=== PATIENT | female | born 1960 | race African-American/Black ===

== ENCOUNTER 2017-09-24 07:52 | Inpatient (IN) | payer SELFPAY ==
[~2017-09-24] VITALS: Ht 157.5 cm; Wt 83.9 kg
[~2017-09-24 07:52] MED LIST: AMLO5TAB4 PO; CARI350T27 PO; CLON0.2T12 PO; ESOM40CA PO; FURO-151 PO; NAPR-681 PO; OMEP40CA34 PO; POTA20TA82 PO; RANI300T4; SUCR1ORA2 PO
[2017-09-24] MEDS ORDERED: MORPHINE SULFATE 4 MG/ML CPJ (NOT FOR IM USE) IV STA (08:45)
[2017-09-24] MEDS ORDERED: ASPIRIN 81MG TABLET PO ONE (08:45)
[2017-09-24 08:54] LABS: BASOPHILS % 0.7 % (0.0-2.0); EOSINOPHILS % 4.5 % (0.0-5.0); HEMATOCRIT. 44.8 % (36.0-48.0); HEMOGLOBIN. 14.6 g/dL (12.0-16.0); MEAN CORPUSCULAR VOLUME 89.1 fL (81.0-99.0); MEAN PLATELET VOLUME 8.4 fl (7.4-10.4); MONOCYTES % 6.4 % (2.0-8.0); NEUTROPHILS % 62.4 % (40.0-76.0); PLATELET 354 x1000/uL (130-400); RED BLOOD CELL COUNT 5.04 mill/uL (4.2-5.4); RED CELL DISTRIBUTION WIDTH 15.8 % (11.6-14.6)
[2017-09-24 09:08] LABS: CARBON DIOXIDE 27 mEq/L (21-32); CHLORIDE 109 mEq/L (98-107); TROPONIN I < 0.02 ng/mL (0.00-0.04)
[2017-09-24 09:11] LABS: PROTHROMBIN TIME 10.7 sec (9.4-11.6)
[2017-09-24] MEDS ORDERED: HYDRALAZINE HCL 50MG TABLET PO ONE (10:15)
[2017-09-24 10:55] VITALS: BP 178/73
[2017-09-24] MEDS ORDERED: NA PHOS,M-B/NA PHOS,DI-BA ENEMA 118ML PR PRN (11:30)
[2017-09-24] MEDS ORDERED: CLONIDINE 0.1MG TABLET PO PRN (11:30)
[2017-09-24] MEDS ORDERED: LORAZEPAM 0.5MG TABLET PO PRN (11:30)
[2017-09-24] MEDS ORDERED: ACETAMINOPHEN 325MG TABLET PO PRN (11:30)
[2017-09-24] MEDS ORDERED: GUAIFENESIN 200MG/10ML SUGAR FREE UDC PO PRN (11:30)
[2017-09-24] MEDS ORDERED: MAGNESIUM/ALUMINUM HYDROXIDE/SIMETHICONE 30ML UDC PO PRN (11:30)
[2017-09-24] MEDS ORDERED: DIPHENHYDRAMINE 50MG/ML VIAL IV PRN (11:30)
[2017-09-24] MEDS ORDERED: IPRATROPIUM/ALBUTEROL 0.5-3(2.5)MG/3ML NEB INH PRN (11:30)
[2017-09-24] MEDS ORDERED: TRAMADOL 50MG TABLET PO PRN (11:30)
[2017-09-24] MEDS ORDERED: AMLODIPINE 10MG TABLET PO SCH (11:30)
[2017-09-24] MEDS ORDERED: NITROGLYCERIN 0.4MG TABLET SL SL PRN (11:30)
[2017-09-24] MEDS ORDERED: DOCUSATE SODIUM 100MG CAPSULE PO PRN (11:30)
[2017-09-24] MEDS ORDERED: ENOXAPARIN 40MG/0.4ML SYR SUBCUT SCH (11:30)
[2017-09-24] MEDS: METOPROLOL TARTRATE 25MG TABLET PO SCH ×2 (12:00→21:00)
[2017-09-24] MEDS: PANTOPRAZOLE SODIUM 40 MG/VIAL IV SCH (12:12)
[2017-09-24] MEDS: ONDANSETRON HCL 4MG/2ML VIAL IV PRN ×3 (12:13→21:49)
[2017-09-24] MEDS: ENOXAPARIN 30MG/0.3ML SYR SUBCUT SCH ×2 (12:13→22:05)
[2017-09-24] MEDS: LISINOPRIL 20MG TABLET PO SCH ×2 (12:14→21:00)
[2017-09-24] MEDS ORDERED: INFLUENZA VIRUS VACCINE 0.5ML SYR IM ONE (14:45)
[2017-09-24] MEDS ORDERED: REGADENOSON 0.4 MG/5 ML IV NR (15:00)
[2017-09-24 16:00] VITALS: BP_SYST 150; BP_SYST 169; BP_DIAS 70
[2017-09-24] MEDS: NITROGLYCERIN OINT 1GM/INCH UDPKT TD SCH ×2 (16:45→22:00)
[2017-09-24 17:10] LABS: CREATINE KINASE 32 IU/L (26-192); CREATINE KINASE MB FRACTION 0.7 ng/mL (0.5-3.6); TROPONIN I < 0.02 ng/mL (0.00-0.04)
[2017-09-24 20:00] VITALS: BP 118/58
[2017-09-24] MEDS ORDERED: ATORVASTATIN CALCIUM 20MG TABLET PO SCH (21:00)
[2017-09-24] MEDS: AMLODIPINE 5MG TABLET PO SCH (21:00)
[2017-09-24] MEDS ORDERED: ZOLPIDEM TARTRATE 5MG TABLET PO PRN (21:00)
[2017-09-24 22:55] LABS: CREATINE KINASE 30 IU/L (26-192); CREATINE KINASE MB FRACTION 0.5 ng/mL (0.5-3.6); TROPONIN I < 0.02 ng/mL (0.00-0.04)
[2017-09-25] VITALS: BP 130/65
[2017-09-25 04:00] VITALS: BP 140/68
[2017-09-25 04:50] LABS: *AMPHETAMINES SCREEN URINE NEGATIVE (NEGATIVE); *BARBITURATES SCREEN URINE NEGATIVE (NEGATIVE); *BENZODIAZEPINES SCREEN URINE NEGATIVE (NEGATIVE); *COCAINE SCREEN URINE PRESUMTIVE POSITIVE (NEGATIVE); CANNABINOID URINE SCREEN NEGATIVE (NEGATIVE); METHADONE URINE SCREEN NEGATIVE (NEGATIVE); OPIATES URINE SCREEN PRESUMTIVE POSITIVE (NEGATIVE); PHENCYCLIDINE URINE SCREEN NEGATIVE (NEGATIVE)
[2017-09-25 07:15] LABS: BASOPHILS % 1.3 % (0.0-2.0); EOSINOPHILS % 5.7 % (0.0-5.0); HEMATOCRIT. 38.9 % (36.0-48.0); HEMOGLOBIN. 12.6 g/dL (12.0-16.0); LYMPHOCYTES % 30.8 % (20.0-50.0); MEAN CORPUSCULAR HEMOGLOBIN 28.6 pg (28.0-32.0); MEAN CORPUSCULAR VOLUME 88.5 fL (81.0-99.0); MEAN PLATELET VOLUME 8.4 fl (7.4-10.4); MONOCYTES % 7.7 % (2.0-8.0); NEUTROPHILS % 54.5 % (40.0-76.0); PLATELET 357 x1000/uL (130-400); RED BLOOD CELL COUNT 4.39 mill/uL (4.2-5.4); RED CELL DISTRIBUTION WIDTH 15.6 % (11.6-14.6)
[2017-09-25 07:42] LABS: CARBON DIOXIDE 28 mEq/L (21-32); CHLORIDE 108 mEq/L (98-107)
[2017-09-25 07:45] VITALS: BP 110/62
[2017-09-25 07:48] LABS: TROPONIN I < 0.02 ng/mL (0.00-0.04)
[2017-09-25] MEDS ORDERED: REGADENOSON 0.4 MG/5 ML IV ONE (08:30)
[2017-09-25] MEDS: PANTOPRAZOLE SODIUM 40 MG/VIAL IV SCH (08:55)
[2017-09-25] MEDS: ENOXAPARIN 30MG/0.3ML SYR SUBCUT SCH (08:55)
[2017-09-25] MEDS: ONDANSETRON HCL 4MG/2ML VIAL IV PRN (08:55)
[2017-09-25] MEDS: AMLODIPINE 5MG TABLET PO SCH (09:00)
[2017-09-25] MEDS: LISINOPRIL 20MG TABLET PO SCH (09:00)
[2017-09-25] MEDS ORDERED: ASPIRIN 325MG EC TABLET PO SCH (09:00)
[2017-09-25] MEDS: METOPROLOL TARTRATE 25MG TABLET PO SCH (09:00)
[2017-09-25 12:45] VITALS: BP 141/78
[2017-09-25 14:14] VITALS: BP 110/62
[2017-09-26] MEDS ORDERED: FAMOTIDINE 20MG TABLET PO SCH (09:00)
== END 2017-09-25 15:15 | disposition home or self-care (01) | DRG 194 ==
LOC: ER 07:57 → 7WST 09:22 → EDBEDREQ 09:54 → ENRESERV 10:09
PROVIDERS: ADMIT Internal Medicine; ATTEND Internal Medicine
DX: I11.0 Hypertensive heart disease with heart failure (principal); N19 Unspecified kidney failure; E44.1 Mild protein-calorie malnutrition; I50.9 Heart failure, unspecified; E78.00 Pure hypercholesterolemia, unspecified; E78.5 Hyperlipidemia, unspecified; E87.6 Hypokalemia; F17.210 Nicotine dependence, cigarettes, uncomplicated; F41.9 Anxiety disorder, unspecified; J44.9 Chronic obstructive pulmonary disease, unspecified; K21.9 Gastro-esophageal reflux disease without esophagitis; Z82.49 Family history of ischemic heart disease and other diseases of the circulatory system; Z90.49 Acquired absence of other specified parts of digestive tract; Z79.899 Other long term (current) drug therapy; Z68.33 Body mass index [BMI] 33.0-33.9, adult
CPT/HCPCS: 36415; 71010; 80048; 80053; 80061; 80305; 82550; 82553; 83036; 83880; 84484; 85025; 85610; 90686; 93005; 93017; 93306; 93970; 96374; 99285; A9500; C9113; J1650; J2270; J2405; J2785

== ENCOUNTER 2017-12-02 11:46 | Emergency (ER) | payer MEDICAID ==
[~2017-12-02] VITALS: Ht 160 cm; Wt 76.0 kg
[~2017-12-02 11:46] MED LIST changes: -CLON0.2T12 PO; -RANI300T4
[2017-12-02] MEDS ORDERED: SODIUM CHLORIDE 0.9% 1,000 ML IV ONE (15:14)
[2017-12-02] MEDS ORDERED: ONDANSETRON HCL 4MG/2ML VIAL IV ONE (15:15)
[2017-12-02] MEDS ORDERED: IBUPROFEN 600MG TABLET PO ONE (15:15)
[2017-12-02 15:49] LABS: BASOPHILS % 1.1 % (0.0-2.0); EOSINOPHILS % 5.5 % (0.0-5.0); LYMPHOCYTES % 28.1 % (20.0-50.0); MEAN CORPUSCULAR VOLUME 89.4 fL (81.0-99.0); MEAN PLATELET VOLUME 7.8 fl (7.4-10.4); MONOCYTES % 6.6 % (2.0-8.0); NEUTROPHILS % 58.7 % (40.0-76.0); PLATELET 425 x1000/uL (130-400); RED BLOOD CELL COUNT 4.47 mill/uL (4.2-5.4); RED CELL DISTRIBUTION WIDTH 15.9 % (11.6-14.6)
[2017-12-02 15:51] LABS: CHLORIDE 110 mEq/L (98-107)
[2017-12-02 16:06] VITALS: BP 169/74
== END 2017-12-02 16:35 | disposition home or self-care (01) ==
LOC: ER 13:00
DX: R53.1 Weakness (principal); R19.7 Diarrhea, unspecified; R11.0 Nausea; M17.11 Unilateral primary osteoarthritis, right knee; I11.0 Hypertensive heart disease with heart failure; I50.9 Heart failure, unspecified; Z90.49 Acquired absence of other specified parts of digestive tract
CPT/HCPCS: 36415; 73562; 80053; 83690; 85025; 93005; 99285; J7030

== ENCOUNTER 2018-07-15 03:59 | Inpatient (IN) | payer MEDICAID ==
[~2018-07-15] VITALS: Ht 157.5 cm; Wt 82.8 kg
[~2018-07-15 03:59] MED LIST changes: +CLOP75TA16 PO; -ESOM40CA PO; +GABA-533 PO
[2018-07-15] MEDS ORDERED: MORPHINE SULFATE 4 MG/ML CPJ (NOT FOR IM USE) IV STA (04:22)
[2018-07-15] MEDS ORDERED: NITROGLYCERIN 0.4MG TABLET SL SL PRN (04:30)
[2018-07-15 05:15] LABS: BASOPHILS % 1.2 % (0.0-2.0); CHLORIDE 112 mEq/L (98-107); HEMATOCRIT. 38.9 % (36.0-48.0); HEMOGLOBIN. 12.7 g/dL (12.0-16.0); LYMPHOCYTES % 34.7 % (20.0-50.0); MEAN CORPUSCULAR VOLUME 91.8 fL (81.0-99.0); MONOCYTES % 6.4 % (2.0-8.0); NEUTROPHILS % 53.7 % (40.0-76.0); PLATELET 391 x1000/uL (130-400); RED BLOOD CELL COUNT 4.23 mill/uL (4.2-5.4); RED CELL DISTRIBUTION WIDTH 15.2 % (11.6-14.6)
[2018-07-15] MEDS ORDERED: IOHEXOL-350 100 ML BOTTLE ONE (05:40)
[2018-07-15] MEDS ORDERED: ACETAMINOPHEN 650MG SUPP PR PRN (08:45)
[2018-07-15] MEDS ORDERED: HYDROCODONE/ACETAMINOPHEN 5/325MG TABLET PO PRN (08:45)
[2018-07-15] MEDS ORDERED: ACETAMINOPHEN 325MG TABLET PO PRN (08:45)
[2018-07-15] MEDS ORDERED: ONDANSETRON HCL 4MG/2ML INJ IV PRN (08:45)
[2018-07-15] MEDS ORDERED: ACETAMINOPHEN 650MG/20.3ML UDC GT PRN (08:45)
[2018-07-15 08:49] VITALS: BP 170/69
[2018-07-15] MEDS ORDERED: REGADENOSON 0.4 MG/5 ML IV ONE ×2 (09:15→10:28)
[2018-07-15 09:45] VITALS: BP 170/69
[2018-07-15] MEDS: OMEPRAZOLE 20MG CAPSULE EXTENDED RELEASE PO SCH (11:25)
[2018-07-15] MEDS: AMLODIPINE 5MG TABLET PO SCH (11:25)
[2018-07-15] MEDS: FUROSEMIDE 40MG TABLET PO SCH (11:25)
[2018-07-15] MEDS: SUCRALFATE 1G TABLET PO SCH ×3 (11:25→21:54)
[2018-07-15] MEDS: CLOPIDOGREL 75MG TABLET PO SCH (11:25)
[2018-07-15 12:03] LABS: CLARITY URINE CLEAR (CLEAR); COLOR URINE YELLOW (YELLOW); KETONES URINE NEGATIVE (NEGATIVE); LEUKOCYTE ESTERASE URINE NEGATIVE (NEGATIVE); NITRITE URINE NEGATIVE (NEGATIVE); OCCULT BLOOD URINE 1+ (NEGATIVE); PH URINE 6.5 (4.5-8.0); PROTEIN URINE NEGATIVE (NEGATIVE); SPECIFIC GRAVITY URINE 1.073 (1.005-1.030); UROBILINOGEN URINE 0.2 E.U./dL (0.2-1.0)
[2018-07-15 12:04] VITALS: BP 194/70
[2018-07-15 13:02] LABS: *BARBITURATES SCREEN URINE NEGATIVE (NEGATIVE); *BENZODIAZEPINES SCREEN URINE NEGATIVE (NEGATIVE); *COCAINE SCREEN URINE PRESUMTIVE POSITIVE (NEGATIVE); METHADONE URINE SCREEN NEGATIVE (NEGATIVE); OPIATES URINE SCREEN PRESUMTIVE POSITIVE (NEGATIVE)
[2018-07-15 13:03] LABS: *AMPHETAMINES SCREEN URINE NEGATIVE (NEGATIVE); CANNABINOID URINE SCREEN NEGATIVE (NEGATIVE); PHENCYCLIDINE URINE SCREEN NEGATIVE (NEGATIVE)
[2018-07-15] MEDS: IPRATROPIUM/ALBUTEROL 0.5-3(2.5)MG/3ML NEB INH SCH ×3 (15:06→22:38)
[2018-07-15 16:08] VITALS: BP 175/73
[2018-07-15 16:57] LABS: CREATINE KINASE 62 IU/L (26-192)
[2018-07-15 16:58] LABS: CREATINE KINASE MB FRACTION < 1.0 ng/mL (0.5-3.6)
[2018-07-15] MEDS ORDERED: IPRATROPIUM/ALBUTEROL 0.5-3(2.5)MG/3ML NEB HHN PRN (17:30)
[2018-07-15] MEDS: NICOTINE 7MG PATCH TD SCH (18:01)
[2018-07-15] MEDS: HYDROCODONE/ACETAMINOPHEN 10/325MG TABLET PO PRN (18:02)
[2018-07-15 20:00] VITALS: BP 162/76
[2018-07-15] MEDS: NITROGLYCERIN OINT 1GM/INCH UDPKT TD SCH (21:58)
[2018-07-15] MEDS: ONDANSETRON 4MG ODT PO PRN (23:58)
[2018-07-16 00:15] VITALS: BP 144/67
[2018-07-16 00:25] LABS: CREATINE KINASE 45 IU/L (26-192)
[2018-07-16 00:26] LABS: CREATINE KINASE MB FRACTION < 1.0 ng/mL (0.5-3.6)
[2018-07-16 04:00] VITALS: BP 169/62
[2018-07-16 06:12] LABS: BASOPHILS % 1.3 % (0.0-2.0); CHLORIDE 107 mEq/L (98-107); EOSINOPHILS % 7.1 % (0.0-5.0); HEMATOCRIT. 35.6 % (36.0-48.0); LYMPHOCYTES % 30.7 % (20.0-50.0); MEAN CORPUSCULAR HEMOGLOBIN 30.7 pg (28.0-32.0); MEAN PLATELET VOLUME 8.2 fl (7.4-10.4); MONOCYTES % 10.1 % (2.0-8.0); NEUTROPHILS % 50.8 % (40.0-76.0); PLATELET 359 x1000/uL (130-400); RED BLOOD CELL COUNT 3.91 mill/uL (4.2-5.4); RED CELL DISTRIBUTION WIDTH 15.5 % (11.6-14.6)
[2018-07-16 06:24] LABS: LDL CHOLESTEROL 96 mg/dL (5-100)
[2018-07-16 06:25] LABS: PHOSPHORUS 3.8 mg/dL (2.5-4.9)
[2018-07-16 06:26] LABS: T4 FREE 0.81 ng/dL (0.76-1.46)
[2018-07-16 06:27] LABS: HDL CHOLESTEROL 73 mg/dL (40-59)
[2018-07-16] MEDS: IPRATROPIUM/ALBUTEROL 0.5-3(2.5)MG/3ML NEB INH SCH ×3 (07:23→20:58)
[2018-07-16] MEDS: HYDROCODONE/ACETAMINOPHEN 10/325MG TABLET PO PRN (07:52)
[2018-07-16 08:03] VITALS: BP 159/71
[2018-07-16] MEDS: NITROGLYCERIN OINT 1GM/INCH UDPKT TD SCH ×3 (09:10→21:35)
[2018-07-16] MEDS: CLOPIDOGREL 75MG TABLET PO SCH (09:13)
[2018-07-16] MEDS: AMLODIPINE 5MG TABLET PO SCH (09:13)
[2018-07-16] MEDS: OMEPRAZOLE 20MG CAPSULE EXTENDED RELEASE PO SCH (09:13)
[2018-07-16] MEDS: ASPIRIN 81MG TABLET PO SCH (09:14)
[2018-07-16] MEDS: FUROSEMIDE 40MG TABLET PO SCH (09:14)
[2018-07-16] MEDS: SUCRALFATE 1G TABLET PO SCH ×4 (09:14→21:34)
[2018-07-16] MEDS: NICOTINE 7MG PATCH TD SCH (09:24)
[2018-07-16 12:07] VITALS: BP 160/83
[2018-07-16] MEDS ORDERED: MORPHINE SULFATE 4 MG/ML CPJ (NOT FOR IM USE) IV PRN (12:30)
[2018-07-16] MEDS: MORPHINE SULFATE 4 MG/ML CPJ (NOT FOR IM USE) IV PRN (12:40)
[2018-07-16 16:55] VITALS: BP 145/66
[2018-07-16 20:00] VITALS: BP 149/69
[2018-07-17] VITALS: BP 149/73
[2018-07-17] MEDS: IPRATROPIUM/ALBUTEROL 0.5-3(2.5)MG/3ML NEB INH SCH ×3 (01:13→15:05)
[2018-07-17 04:00] VITALS: BP 175/79
[2018-07-17] MEDS: NITROGLYCERIN OINT 1GM/INCH UDPKT TD SCH (06:00)
[2018-07-17] MEDS: OMEPRAZOLE 20MG CAPSULE EXTENDED RELEASE PO SCH (06:30)
[2018-07-17] MEDS: SUCRALFATE 1G TABLET PO SCH ×2 (06:30→12:46)
[2018-07-17 08:00] VITALS: BP 136/70
[2018-07-17 08:32] VITALS: BP 136/70
[2018-07-17] MEDS: CLOPIDOGREL 75MG TABLET PO SCH (09:37)
[2018-07-17] MEDS: ASPIRIN 81MG TABLET PO SCH (09:37)
[2018-07-17] MEDS: FUROSEMIDE 40MG TABLET PO SCH (09:37)
[2018-07-17] MEDS: AMLODIPINE 5MG TABLET PO SCH (09:38)
[2018-07-17] MEDS: NICOTINE 7MG PATCH TD SCH (09:38)
[2018-07-17] MEDS: MORPHINE SULFATE 4 MG/ML CPJ (NOT FOR IM USE) IV PRN (09:45)
[2018-07-17] MEDS: ONDANSETRON 4MG ODT PO PRN (09:51)
[2018-07-17 10:28] LABS: BASOPHILS % 0.7 % (0.0-2.0); EOSINOPHILS % 4.4 % (0.0-5.0); HEMATOCRIT. 40.4 % (36.0-48.0); HEMOGLOBIN. 13.1 g/dL (12.0-16.0); LYMPHOCYTES % 20.9 % (20.0-50.0); MEAN CORPUSCULAR HEMOGLOBIN 29.8 pg (28.0-32.0); MEAN CORPUSCULAR VOLUME 92.1 fL (81.0-99.0); MONOCYTES % 7.2 % (2.0-8.0); NEUTROPHILS % 66.8 % (40.0-76.0); PLATELET 394 x1000/uL (130-400); RED BLOOD CELL COUNT 4.39 mill/uL (4.2-5.4); RED CELL DISTRIBUTION WIDTH 15.4 % (11.6-14.6)
[2018-07-17 11:16] LABS: CHLORIDE 106 mEq/L (98-107)
[2018-07-17 12:59] VITALS: BP 167/82
[2018-07-17 16:00] VITALS: BP 135/62
== END 2018-07-17 16:43 | disposition home or self-care (01) | DRG 203 ==
LOC: ER 03:59 → 6WST 05:44 → EDBEDREQ 05:47 → EDBEDREQTM 05:47 → ENRESERV 06:24
PROVIDERS: ADMIT Internal Medicine; ATTEND Internal Medicine
DX: M94.0 Chondrocostal junction syndrome [Tietze] (principal); E44.1 Mild protein-calorie malnutrition; I11.0 Hypertensive heart disease with heart failure; I50.9 Heart failure, unspecified; K76.89 Other specified diseases of liver; E78.00 Pure hypercholesterolemia, unspecified; E78.5 Hyperlipidemia, unspecified; F14.10 Cocaine abuse, uncomplicated; F17.210 Nicotine dependence, cigarettes, uncomplicated; J44.9 Chronic obstructive pulmonary disease, unspecified; Z82.49 Family history of ischemic heart disease and other diseases of the circulatory system; Z90.49 Acquired absence of other specified parts of digestive tract; Z68.33 Body mass index [BMI] 33.0-33.9, adult
CPT/HCPCS: 36415; 71045; 71275; 74174; 76700; 78452; 80048; 80053; 80061; 80305; 81003; 82550; 82553; 83036; 83690; 83735; 83880; 84100; 84439; 84443; 84481; 84484; 85025; 85379; 85610; 85730; 93005; 93306; 93970; 94640; 96374; 99285; A9500; J2270; J2785; J7620; Q0162; Q9967

== ENCOUNTER 2019-02-23 15:01 | Inpatient (IN) | payer MEDICAID ==
[~2019-02-23] VITALS: Ht 162.6 cm; Wt 76.4 kg
[~2019-02-23 15:01] MED LIST changes: -NAPR-681 PO
[2019-02-23] MEDS ORDERED: MORPHINE SULFATE 4 MG/ML CPJ (NOT FOR IM USE) IV ONE (15:30)
[2019-02-23 15:59] LABS: BASOPHILS % 0.6 % (0.0-2.0); EOSINOPHILS % 4.3 % (0.0-5.0); HEMATOCRIT. 40.3 % (36.0-48.0); HEMOGLOBIN. 13.1 g/dL (12.0-16.0); LYMPHOCYTES % 18.4 % (20.0-50.0); MEAN CORPUSCULAR HEMOGLOBIN 28.7 pg (28.0-32.0); MEAN CORPUSCULAR VOLUME 88.6 fL (81.0-99.0); MEAN PLATELET VOLUME 8.4 fl (7.4-10.4); MONOCYTES % 8.7 % (2.0-8.0); PLATELET 360 x1000/uL (130-400); RED BLOOD CELL COUNT 4.55 mill/uL (4.2-5.4); RED CELL DISTRIBUTION WIDTH 15.9 % (11.6-14.6)
[2019-02-23 16:03] LABS: CHLORIDE 112 mEq/L (98-107)
[2019-02-23] MEDS ORDERED: ASPIRIN 81MG TABLET PO ONE (16:45)
[2019-02-23] MEDS ORDERED: AMLODIPINE 10MG TABLET PO ONE (17:00)
[2019-02-23] MEDS ORDERED: MAGNESIUM/ALUMINUM HYDROXIDE/SIMETHICONE 30ML UDC PO PRN (17:45)
[2019-02-23] MEDS ORDERED: MORPHINE SULFATE 2 MG/ML CPJ (NOT FOR IM USE) IV PRN (17:45)
[2019-02-23] MEDS ORDERED: ACETAMINOPHEN 325MG TABLET PO PRN (17:45)
[2019-02-23] MEDS ORDERED: DIPHENHYDRAMINE 50MG/ML VIAL IV PRN (17:45)
[2019-02-23] MEDS ORDERED: GUAIFENESIN 200MG/10ML SUGAR FREE UDC PO PRN (17:45)
[2019-02-23 17:57] LABS: PHOSPHORUS 3.1 mg/dL (2.5-4.9)
[2019-02-23] MEDS ORDERED: DOCUSATE SODIUM 100MG CAPSULE PO PRN (19:00)
[2019-02-23 23:26] LABS: CREATINE KINASE MB FRACTION 1.1 ng/mL (0.5-3.6)
[2019-02-23] MEDS ORDERED: SENNOSIDES 8.6MG TABLET PO PRN (23:30)
[2019-02-24] VITALS (7 sets, daily range): BP systolic 148–178; BP diastolic 55–76
[2019-02-24] MEDS: MORPHINE SULFATE 2 MG/ML CPJ (NOT FOR IM USE) IV PRN ×5 (01:12→21:25)
[2019-02-24] MEDS: ONDANSETRON HCL 4MG/2ML INJ IV PRN ×2 (01:12→15:31)
[2019-02-24] MEDS: OMEPRAZOLE 20MG CAPSULE EXTENDED RELEASE PO SCH (05:52)
[2019-02-24 07:06] LABS: BASOPHILS % 0.9 % (0.0-2.0); EOSINOPHILS % 5.6 % (0.0-5.0); HEMATOCRIT. 36.9 % (36.0-48.0); HEMOGLOBIN. 11.8 g/dL (12.0-16.0); LYMPHOCYTES % 31.1 % (20.0-50.0); MEAN CORPUSCULAR HEMOGLOBIN 28.4 pg (28.0-32.0); MEAN CORPUSCULAR VOLUME 88.9 fL (81.0-99.0); MEAN PLATELET VOLUME 8.5 fl (7.4-10.4); MONOCYTES % 12.5 % (2.0-8.0); NEUTROPHILS % 49.9 % (40.0-76.0); PLATELET 314 x1000/uL (130-400); RED BLOOD CELL COUNT 4.15 mill/uL (4.2-5.4); RED CELL DISTRIBUTION WIDTH 16.1 % (11.6-14.6)
[2019-02-24 07:31] LABS: CHLORIDE 112 mEq/L (98-107)
[2019-02-24 07:50] LABS: LDL CHOLESTEROL 88 mg/dL (5-100)
[2019-02-24 07:52] LABS: CREATINE KINASE 88 IU/L (26-192); HDL CHOLESTEROL 87 mg/dL (40-59)
[2019-02-24 07:54] LABS: CREATINE KINASE MB FRACTION < 1.0 ng/mL (0.5-3.6)
[2019-02-24] MEDS: GABAPENTIN 400MG CAPSULE PO SCH ×2 (10:41→16:46)
[2019-02-24] MEDS: ENOXAPARIN 40MG/0.4ML SYR SUBCUT SCH (10:41)
[2019-02-24] MEDS: CLONIDINE 0.1MG TABLET PO PRN (12:21)
[2019-02-24] MEDS ORDERED: CLONIDINE 0.2MG TABLET PO PRN (12:45)
[2019-02-24] MEDS: ASPIRIN 81MG EC TABLET PO SCH (13:56)
[2019-02-24 15:58] LABS: *AMPHETAMINES SCREEN URINE NEGATIVE (NEGATIVE); *BARBITURATES SCREEN URINE NEGATIVE (NEGATIVE); *BENZODIAZEPINES SCREEN URINE NEGATIVE (NEGATIVE); *COCAINE SCREEN URINE PRESUMTIVE POSITIVE (NEGATIVE)
[2019-02-24 15:59] LABS: CANNABINOID URINE SCREEN NEGATIVE (NEGATIVE); METHADONE URINE SCREEN NEGATIVE (NEGATIVE); OPIATES URINE SCREEN PRESUMTIVE POSITIVE (NEGATIVE); PHENCYCLIDINE URINE SCREEN NEGATIVE (NEGATIVE)
[2019-02-24] MEDS: IPRATROPIUM/ALBUTEROL 0.5-3(2.5)MG/3ML NEB INH PRN (20:30)
[2019-02-24] MEDS: ATORVASTATIN CALCIUM 20MG TABLET PO SCH (21:19)
[2019-02-24] MEDS: AMLODIPINE 5MG TABLET PO SCH (21:19)
[2019-02-25] VITALS: BP 153/53
[2019-02-25 04:00] VITALS: BP 151/72
[2019-02-25] MEDS: MORPHINE SULFATE 2 MG/ML CPJ (NOT FOR IM USE) IV PRN ×4 (04:31→19:53)
[2019-02-25 07:25] LABS: BASOPHILS % 1.1 % (0.0-2.0); EOSINOPHILS % 6.2 % (0.0-5.0); HEMATOCRIT. 38.6 % (36.0-48.0); HEMOGLOBIN. 12.5 g/dL (12.0-16.0); LYMPHOCYTES % 29.5 % (20.0-50.0); MEAN CORPUSCULAR VOLUME 89.6 fL (81.0-99.0); MEAN PLATELET VOLUME 8.5 fl (7.4-10.4); MONOCYTES % 10.9 % (2.0-8.0); NEUTROPHILS % 52.3 % (40.0-76.0); PLATELET 344 x1000/uL (130-400); RED BLOOD CELL COUNT 4.31 mill/uL (4.2-5.4); RED CELL DISTRIBUTION WIDTH 15.9 % (11.6-14.6)
[2019-02-25] MEDS: OMEPRAZOLE 20MG CAPSULE EXTENDED RELEASE PO SCH (07:33)
[2019-02-25 08:00] VITALS: BP 169/74
[2019-02-25] MEDS: ASPIRIN 81MG EC TABLET PO SCH (08:39)
[2019-02-25] MEDS: AMLODIPINE 5MG TABLET PO SCH ×2 (08:39→20:48)
[2019-02-25] MEDS: GABAPENTIN 400MG CAPSULE PO SCH ×2 (08:39→17:50)
[2019-02-25] MEDS: ENOXAPARIN 40MG/0.4ML SYR SUBCUT SCH (08:39)
[2019-02-25 09:24] LABS: CHLORIDE 110 mEq/L (98-107)
[2019-02-25 09:39] LABS: LDL CHOLESTEROL 103 mg/dL (5-100)
[2019-02-25 09:40] LABS: CREATINE KINASE 44 IU/L (26-192)
[2019-02-25 09:42] LABS: HDL CHOLESTEROL 69 mg/dL (40-59)
[2019-02-25 09:44] LABS: CREATINE KINASE MB FRACTION < 1.0 ng/mL (0.5-3.6)
[2019-02-25 12:00] VITALS: BP 101/77
[2019-02-25] MEDS: CLONIDINE 0.1MG TABLET PO PRN (12:56)
[2019-02-25 16:00] VITALS: BP 155/73
[2019-02-25] MEDS: IPRATROPIUM/ALBUTEROL 0.5-3(2.5)MG/3ML NEB INH PRN (17:32)
[2019-02-25 20:00] VITALS: BP 128/80
[2019-02-25] MEDS: ATORVASTATIN CALCIUM 20MG TABLET PO SCH (20:47)
[2019-02-26] VITALS: BP 149/65
[2019-02-26 04:00] VITALS: BP 146/60
[2019-02-26] MEDS: MORPHINE SULFATE 2 MG/ML CPJ (NOT FOR IM USE) IV PRN ×2 (04:33→08:36)
[2019-02-26 08:00] VITALS: BP 141/61
[2019-02-26] MEDS: GABAPENTIN 400MG CAPSULE PO SCH (08:26)
[2019-02-26] MEDS: AMLODIPINE 5MG TABLET PO SCH (08:26)
[2019-02-26] MEDS: ASPIRIN 81MG EC TABLET PO SCH (08:26)
[2019-02-26] MEDS: ENOXAPARIN 40MG/0.4ML SYR SUBCUT SCH (08:27)
[2019-02-26] MEDS: OMEPRAZOLE 20MG CAPSULE EXTENDED RELEASE PO SCH (08:35)
[2019-02-26 10:56] VITALS: BP 141/68
== END 2019-02-26 13:18 | disposition home or self-care (01) | DRG 198 ==
LOC: ER 15:01 → 7WST 16:59 → ENRESERV 23:13
PROVIDERS: ADMIT Internal Medicine; ATTEND Internal Medicine
DX: I24.9 Acute ischemic heart disease, unspecified (principal); I11.0 Hypertensive heart disease with heart failure; E46 Unspecified protein-calorie malnutrition; I50.9 Heart failure, unspecified; G62.9 Polyneuropathy, unspecified; M19.90 Unspecified osteoarthritis, unspecified site; E78.00 Pure hypercholesterolemia, unspecified; J44.9 Chronic obstructive pulmonary disease, unspecified; K21.9 Gastro-esophageal reflux disease without esophagitis; R00.1 Bradycardia, unspecified; E78.5 Hyperlipidemia, unspecified; F14.10 Cocaine abuse, uncomplicated; Z71.51 Drug abuse counseling and surveillance of drug abuser; Z90.49 Acquired absence of other specified parts of digestive tract; Z82.49 Family history of ischemic heart disease and other diseases of the circulatory system; Z83.3 Family history of diabetes mellitus; Z79.899 Other long term (current) drug therapy; Z87.891 Personal history of nicotine dependence; Z68.28 Body mass index [BMI] 28.0-28.9, adult
CPT/HCPCS: 36415; 71045; 80048; 80061; 80305; 82550; 82553; 83735; 83880; 84100; 84443; 84484; 85379; 93005; 93306; 93970; 94640; 97116; 97162; 97166; 99285; J1200; J1650; J2270; J2405; J7620

== ENCOUNTER 2019-05-09 16:33 | Emergency (ER) | payer MEDICAID ==
[~2019-05-09] VITALS: Ht 167.6 cm; Wt 85.0 kg
[~2019-05-09 16:33] MED LIST changes: -CLOP75TA16 PO; +CLOP75TA4 PO
[2019-05-09] MEDS ORDERED: SODIUM CHLORIDE 0.9% 1,000 ML IV ONE (18:27)
[2019-05-09] MEDS ORDERED: KETOROLAC 30MG/ML VIAL IV STA (18:27)
[2019-05-09] MEDS ORDERED: ONDANSETRON HCL 4MG/2ML INJ IV STA (18:27)
[2019-05-09 18:53] LABS: BASOPHILS % 0.8 % (0.0-2.0); EOSINOPHILS % 4.7 % (0.0-5.0); HEMATOCRIT. 39.7 % (36.0-48.0); HEMOGLOBIN. 12.9 g/dL (12.0-16.0); LYMPHOCYTES % 25.4 % (20.0-50.0); MEAN CORPUSCULAR HEMOGLOBIN 29.5 pg (28.0-32.0); MEAN PLATELET VOLUME 7.7 fl (7.4-10.4); NEUTROPHILS % 60.1 % (40.0-76.0); PLATELET 341 x1000/uL (130-400); RED BLOOD CELL COUNT 4.36 mill/uL (4.2-5.4); RED CELL DISTRIBUTION WIDTH 15.8 % (11.6-14.6)
[2019-05-09 18:56] LABS: CHLORIDE 118 mEq/L (98-107)
[2019-05-09 18:57] LABS: PROTHROMBIN TIME 10.3 sec (9.6-11.0)
[2019-05-09] MEDS ORDERED: SODIUM CHLORIDE 0.45% 500 ML IV ONE (19:15)
[2019-05-09 20:08] LABS: CLARITY URINE CLEAR (CLEAR); COLOR URINE YELLOW (YELLOW); KETONES URINE NEGATIVE (NEGATIVE); LEUKOCYTE ESTERASE URINE NEGATIVE (NEGATIVE); NITRITE URINE NEGATIVE (NEGATIVE); OCCULT BLOOD URINE 1+ (NEGATIVE); PROTEIN URINE NEGATIVE (NEGATIVE); SPECIFIC GRAVITY URINE 1.014 (1.005-1.030); UROBILINOGEN URINE 0.2 E.U./dL (0.2-1.0)
[2019-05-09 20:31] LABS: *AMPHETAMINES SCREEN URINE NEGATIVE (NEGATIVE); *BARBITURATES SCREEN URINE NEGATIVE (NEGATIVE); *BENZODIAZEPINES SCREEN URINE NEGATIVE (NEGATIVE); *COCAINE SCREEN URINE PRESUMTIVE POSITIVE (NEGATIVE); METHADONE URINE SCREEN NEGATIVE (NEGATIVE); OPIATES URINE SCREEN NEGATIVE (NEGATIVE)
[2019-05-09 20:32] LABS: CANNABINOID URINE SCREEN NEGATIVE (NEGATIVE); PHENCYCLIDINE URINE SCREEN NEGATIVE (NEGATIVE)
[2019-05-09 21:33] VITALS: BP 185/68
== END 2019-05-09 21:35 | disposition home or self-care (01) ==
LOC: ER 16:33
DX: R07.89 Other chest pain (principal); R10.9 Unspecified abdominal pain; E78.00 Pure hypercholesterolemia, unspecified; J44.9 Chronic obstructive pulmonary disease, unspecified; I11.0 Hypertensive heart disease with heart failure; I50.9 Heart failure, unspecified; F14.10 Cocaine abuse, uncomplicated; Z90.49 Acquired absence of other specified parts of digestive tract
CPT/HCPCS: 36415; 80053; 80305; 81003; 83690; 85025; 85610; 93005; 96361; 96374; 96375; 99284; J1885; J2405; J7030

== ENCOUNTER 2019-11-17 21:25 | Emergency (ER) | payer MEDICAID ==
[~2019-11-17] VITALS: Ht 162.6 cm; Wt 74.0 kg
[~2019-11-17 21:25] MED LIST changes: +OMEP40CA12 PO; -OMEP40CA34 PO
[2019-11-18 01:50] LABS: BASOPHILS % 0.6 % (0.0-2.0); EOSINOPHILS % 2.3 % (0.0-5.0); HEMATOCRIT. 38.6 % (36.0-48.0); HEMOGLOBIN. 12.7 g/dL (12.0-16.0); LYMPHOCYTES % 20.1 % (20.0-50.0); MEAN CORPUSCULAR HEMOGLOBIN 30.1 pg (28.0-32.0); MEAN CORPUSCULAR VOLUME 91.6 fL (81.0-99.0); MEAN PLATELET VOLUME 8.3 fl (7.4-10.4); MONOCYTES % 9.4 % (2.0-8.0); NEUTROPHILS % 67.6 % (40.0-76.0); PLATELET 336 x1000/uL (130-400); RED BLOOD CELL COUNT 4.22 mill/uL (4.2-5.4); RED CELL DISTRIBUTION WIDTH 14.9 % (11.6-14.6)
[2019-11-18 01:58] LABS: ETHANOL BLOOD < 10 mg/dL
[2019-11-18 02:09] LABS: CHLORIDE 110 mEq/L (98-107)
[2019-11-18] MEDS ORDERED: CLONIDINE 0.2MG TABLET PO ONE (04:45)
[2019-11-18 13:37] VITALS: BP 142/70
== END 2019-11-18 13:40 | disposition home or self-care (01) ==
LOC: ER 21:25
DX: S00.83XA Contusion of other part of head, initial encounter (principal); Y08.89XA Assault by other specified means, initial encounter; Y93.89 Activity, other specified; Y92.89 Other specified places as the place of occurrence of the external cause; Y99.8 Other external cause status; R07.89 Other chest pain; F14.10 Cocaine abuse, uncomplicated; I11.0 Hypertensive heart disease with heart failure; I50.9 Heart failure, unspecified; E78.00 Pure hypercholesterolemia, unspecified; J44.9 Chronic obstructive pulmonary disease, unspecified; Z79.899 Other long term (current) drug therapy
CPT/HCPCS: 36415; 70450; 70486; 71045; 80053; 80320; 83880; 84484; 85025; 93005; 99284; Z7610; G0480

== ENCOUNTER 2020-03-06 00:22 | Emergency (ER) | payer MEDICAID ==
[~2020-03-06] VITALS: Ht 165.1 cm; Wt 81.0 kg
[2020-03-06] MEDS ORDERED: IBUPROFEN 600MG TABLET PO ONE (00:45)
[2020-03-06] MEDS ORDERED: ACETAMINOPHEN 325MG TABLET PO ONE (00:45)
[2020-03-06 03:00] VITALS: BP 139/68
== END 2020-03-06 03:46 | disposition home or self-care (01) ==
LOC: ER 00:22
DX: S20.219A Contusion of unspecified front wall of thorax, initial encounter (principal); S42.292A Other displaced fracture of upper end of left humerus, initial encounter for closed fracture; I10 Essential (primary) hypertension; F14.10 Cocaine abuse, uncomplicated; Z79.899 Other long term (current) drug therapy; Z90.49 Acquired absence of other specified parts of digestive tract; Y04.0XXA Assault by unarmed brawl or fight, initial encounter; Y92.89 Other specified places as the place of occurrence of the external cause; Y93.89 Activity, other specified; Y99.8 Other external cause status
CPT/HCPCS: 71045; 73030; 99284

== ENCOUNTER 2020-08-16 12:38 | Emergency (ER) | payer MEDICAID ==
[~2020-08-16] VITALS: Ht 170.2 cm; Wt 82.0 kg
[~2020-08-16 12:38] MED LIST changes: +AMLO10TA4 PO; -AMLO5TAB4 PO; -CARI350T27 PO; -FURO-151 PO; -POTA20TA82 PO; +SUCR1ORA15 PO
[2020-08-16] MEDS ORDERED: METOCLOPRAMIDE HCL 10MG/2ML VIAL IV STA (13:41)
[2020-08-16 13:45] VITALS: BP 141/71
[2020-08-16] MEDS ORDERED: SODIUM CHLORIDE 0.9% 1,000 ML IV ONE (13:45)
== END 2020-08-16 13:55 | disposition left against medical advice (07) ==
LOC: ER 12:38
DX: R53.1 Weakness (principal); R46.1 Bizarre personal appearance; I11.9 Hypertensive heart disease without heart failure; I25.2 Old myocardial infarction; Z95.0 Presence of cardiac pacemaker; Z98.890 Other specified postprocedural states
CPT/HCPCS: 93005; 99283; J7030

== ENCOUNTER 2020-09-12 21:16 | Inpatient (IN) | payer MEDICAID ==
[~2020-09-12] VITALS: Ht 157.5 cm; Wt 73.1 kg
[2020-09-12] MEDS ORDERED: MORPHINE SULFATE 4 MG/ML CPJ (NOT FOR IM USE) IV STA (23:39)
[2020-09-12] MEDS ORDERED: ONDANSETRON HCL 4MG/2ML INJ IV STA (23:39)
[2020-09-12 23:45] LABS: BASOPHILS % 0.6 % (0.0-2.0); EOSINOPHILS % 0.6 % (0.0-5.0); HEMATOCRIT. 32.1 % (36.0-48.0); HEMOGLOBIN. 10.5 g/dL (12.0-16.0); MEAN CORPUSCULAR HEMOGLOBIN 27.4 pg (28.0-32.0); MEAN CORPUSCULAR VOLUME 83.6 fL (81.0-99.0); MEAN PLATELET VOLUME 7.3 fl (7.4-10.4); MONOCYTES % 6.9 % (2.0-8.0); NEUTROPHILS % 78.9 % (40.0-76.0); PLATELET 575 x1000/uL (130-400); RED BLOOD CELL COUNT 3.84 mill/uL (4.2-5.4); RED CELL DISTRIBUTION WIDTH 17.8 % (11.6-14.6)
[2020-09-12] MEDS ORDERED: NITROGLYCERIN OINT 1GM/INCH UDPKT TD ONE (23:45)
[2020-09-12 23:54] LABS: CHLORIDE 109 mEq/L (98-107)
[2020-09-13] VITALS (7 sets, daily range): BP systolic 129–170; BP diastolic 68–85
[2020-09-13] MEDS ORDERED: IOHEXOL-350 100 ML BOTTLE ONE (02:44)
[2020-09-13] MEDS ORDERED: SODIUM CHLORIDE 0.9% 1,000 ML IV ONE (03:15)
[2020-09-13] MEDS ORDERED: IOHEXOL-300 100 ML BOTTLE ONE (03:54)
[2020-09-13] MEDS ORDERED: MORPHINE SULFATE 2 MG/ML CPJ (NOT FOR IM USE) IV PRN (05:15)
[2020-09-13] MEDS ORDERED: ACETAMINOPHEN 325MG TABLET PO PRN (09:30)
[2020-09-13] MEDS ORDERED: ONDANSETRON HCL 4MG/2ML INJ IV PRN (09:30)
[2020-09-13] MEDS: TRAMADOL 50MG TABLET PO PRN (12:56)
[2020-09-13] MEDS: SUCRALFATE 1G TABLET PO SCH ×3 (13:25→21:35)
[2020-09-13] MEDS: LOSARTAN POTASSIUM 50 MG TABLET PO SCH (13:26)
[2020-09-13] MEDS: AMLODIPINE 10MG TABLET PO SCH (13:26)
[2020-09-13] MEDS ORDERED: AMLODIPINE 10MG TABLET PO ONE (13:45)
[2020-09-13] MEDS: CLONIDINE 0.1MG TABLET PO PRN (16:52)
[2020-09-13] MEDS ORDERED: RIVA20TA PO (17:24)
[2020-09-13] MEDS ORDERED: ATOR-2 PO (17:24)
[2020-09-13] MEDS ORDERED: CARI250T PO (17:24)
[2020-09-13] MEDS ORDERED: HYDR-3280 MT (17:24)
[2020-09-13] MEDS: PANTOPRAZOLE SODIUM 40 MG/VIAL IV SCH (21:36)
[2020-09-14] VITALS (11 sets, daily range): BP systolic 107–150; BP diastolic 50–84
[2020-09-14] MEDS: SUCRALFATE 1G TABLET PO SCH ×4 (06:37→21:33)
[2020-09-14] MEDS ORDERED: OMEPRAZOLE 20MG CAPSULE EXTENDED RELEASE PO SCH (06:50)
[2020-09-14 06:57] LABS: BASOPHILS % 0.8 % (0.0-2.0); EOSINOPHILS % 1.5 % (0.0-5.0); HEMATOCRIT. 28.2 % (36.0-48.0); HEMOGLOBIN. 9.1 g/dL (12.0-16.0); LYMPHOCYTES % 23.4 % (20.0-50.0); MEAN CORPUSCULAR HEMOGLOBIN 27.2 pg (28.0-32.0); MEAN CORPUSCULAR VOLUME 84.2 fL (81.0-99.0); MEAN PLATELET VOLUME 7.4 fl (7.4-10.4); MONOCYTES % 9.9 % (2.0-8.0); NEUTROPHILS % 64.4 % (40.0-76.0); PLATELET 465 x1000/uL (130-400); RED BLOOD CELL COUNT 3.34 mill/uL (4.2-5.4); RED CELL DISTRIBUTION WIDTH 18.1 % (11.6-14.6)
[2020-09-14 06:59] LABS: CHLORIDE 109 mEq/L (98-107)
[2020-09-14 07:00] LABS: PARTIAL THROMBOPLASTIN TIME 28.5 sec (23.4-31.0)
[2020-09-14] MEDS ORDERED: AMLODIPINE 10MG TABLET PO SCH (09:00)
[2020-09-14] MEDS: AMLODIPINE 10MG TABLET PO SCH (09:00)
[2020-09-14] MEDS: LOSARTAN POTASSIUM 50 MG TABLET PO SCH (09:00)
[2020-09-14] MEDS: PANTOPRAZOLE SODIUM 40 MG/VIAL IV SCH ×2 (09:57→21:33)
[2020-09-14] MEDS ORDERED: DIPHENHYDRAMINE 50MG/ML VIAL ONE (11:52)
[2020-09-14] MEDS ORDERED: FENTANYL CITRATE/PF 50MCG/ML 2ML VIAL ONE (13:13)
[2020-09-14] MEDS ORDERED: MIDAZOLAM HCL 2 MG/2 ML VIAL ONE (13:13)
[2020-09-14] MEDS ORDERED: HYDRALAZINE 20MG/ML VIAL ONE (13:20)
[2020-09-14] MEDS ORDERED: SODIUM CHLORIDE 0.9% 10ML VIAL ONE (13:20)
[2020-09-14] MEDS: TRAMADOL 50MG TABLET PO PRN (16:30)
[2020-09-15] VITALS: BP 118/51
[2020-09-15 04:00] VITALS: BP 120/60
[2020-09-15] MEDS: SUCRALFATE 1G TABLET PO SCH ×4 (06:33→21:21)
[2020-09-15] MEDS: TRAMADOL 50MG TABLET PO PRN ×2 (06:38→13:35)
[2020-09-15 08:00] VITALS: BP_SYST 110; BP_SYST 136; BP_DIAS 60; BP_DIAS 71
[2020-09-15] MEDS: LOSARTAN POTASSIUM 50 MG TABLET PO SCH (09:05)
[2020-09-15] MEDS: PANTOPRAZOLE SODIUM 40 MG/VIAL IV SCH (09:06)
[2020-09-15] MEDS: AMLODIPINE 10MG TABLET PO SCH (09:06)
[2020-09-15 09:53] LABS: BASOPHILS % 0.7 % (0.0-2.0); HEMATOCRIT. 27.8 % (36.0-48.0); LYMPHOCYTES % 19.7 % (20.0-50.0); MEAN CORPUSCULAR HEMOGLOBIN 27.3 pg (28.0-32.0); MEAN PLATELET VOLUME 7.5 fl (7.4-10.4); MONOCYTES % 10.1 % (2.0-8.0); NEUTROPHILS % 65.5 % (40.0-76.0); PLATELET 416 x1000/uL (130-400); RED BLOOD CELL COUNT 3.31 mill/uL (4.2-5.4); RED CELL DISTRIBUTION WIDTH 17.8 % (11.6-14.6)
[2020-09-15 10:13] LABS: CHLORIDE 110 mEq/L (98-107)
[2020-09-15 12:00] VITALS: BP 138/78
[2020-09-15 16:00] VITALS: BP 145/77
[2020-09-15 20:00] VITALS: BP 128/71
[2020-09-15] MEDS: PANTOPRAZOLE 40MG DR TABLET PO SCH (21:21)
[2020-09-16] VITALS: BP 127/59
[2020-09-16] MEDS: TRAMADOL 50MG TABLET PO PRN ×2 (01:06→12:31)
[2020-09-16 04:00] VITALS: BP 130/60
[2020-09-16] MEDS: SUCRALFATE 1G TABLET PO SCH ×4 (06:30→21:32)
[2020-09-16] MEDS: PANTOPRAZOLE 40MG DR TABLET PO SCH (06:30)
[2020-09-16 08:00] VITALS: BP 118/61
[2020-09-16] MEDS: LOSARTAN POTASSIUM 50 MG TABLET PO SCH (09:00)
[2020-09-16] MEDS: AMLODIPINE 10MG TABLET PO SCH (09:17)
[2020-09-16] MEDS: ONDANSETRON HCL 4MG TABLET PO PRN ×2 (09:25→21:38)
[2020-09-16 11:59] VITALS: BP 162/77
[2020-09-16] MEDS: CLONIDINE 0.1MG TABLET PO PRN (12:31)
[2020-09-16 16:00] VITALS: BP 124/68
[2020-09-16] MEDS ORDERED: PANTOPRAZOLE 40MG DR TABLET PO NR (16:30)
[2020-09-16] MEDS: HYDROCODONE/ACETAMINOPHEN 5/325MG TABLET PO PRN (17:23)
[2020-09-16 20:00] VITALS: BP 124/73
[2020-09-17] VITALS: BP 125/75
[2020-09-17 04:00] VITALS: BP 129/69
[2020-09-17] MEDS: SUCRALFATE 1G TABLET PO SCH ×4 (06:24→22:53)
[2020-09-17] MEDS: PANTOPRAZOLE 40MG DR TABLET PO SCH ×2 (06:25→22:53)
[2020-09-17] MEDS: HYDROCODONE/ACETAMINOPHEN 5/325MG TABLET PO PRN ×2 (06:25→11:47)
[2020-09-17 08:00] VITALS: BP 149/84
[2020-09-17] MEDS: LOSARTAN POTASSIUM 50 MG TABLET PO SCH (08:41)
[2020-09-17] MEDS: AMLODIPINE 10MG TABLET PO SCH (08:41)
[2020-09-17 12:00] VITALS: BP 152/72
[2020-09-17 16:00] VITALS: BP 158/74
[2020-09-17] MEDS: ONDANSETRON HCL 4MG TABLET PO PRN (16:50)
[2020-09-17 20:00] VITALS: BP 160/74
[2020-09-18] VITALS: BP 125/55
[2020-09-18] MEDS: HYDROCODONE/ACETAMINOPHEN 5/325MG TABLET PO PRN ×4 (01:10→21:17)
[2020-09-18 04:00] VITALS: BP 124/68
[2020-09-18] MEDS: PANTOPRAZOLE 40MG DR TABLET PO SCH ×2 (06:46→21:17)
[2020-09-18] MEDS: SUCRALFATE 1G TABLET PO SCH ×4 (06:46→21:17)
[2020-09-18 08:00] VITALS: BP 146/72
[2020-09-18] MEDS: LOSARTAN POTASSIUM 50 MG TABLET PO SCH (08:05)
[2020-09-18] MEDS: AMLODIPINE 10MG TABLET PO SCH (08:05)
[2020-09-18 12:00] VITALS: BP 144/74
[2020-09-18 16:00] VITALS: BP 148/82
[2020-09-18 20:00] VITALS: BP 151/82
[2020-09-19] VITALS: BP 143/68
[2020-09-19 04:00] VITALS: BP 155/93
[2020-09-19] MEDS: PANTOPRAZOLE 40MG DR TABLET PO SCH ×2 (06:27→20:55)
[2020-09-19] MEDS: SUCRALFATE 1G TABLET PO SCH ×4 (06:27→20:55)
[2020-09-19] MEDS: HYDROCODONE/ACETAMINOPHEN 5/325MG TABLET PO PRN ×3 (06:31→20:56)
[2020-09-19 08:00] VITALS: BP 158/87
[2020-09-19] MEDS: AMLODIPINE 10MG TABLET PO SCH (08:44)
[2020-09-19] MEDS: LOSARTAN POTASSIUM 50 MG TABLET PO SCH (08:44)
[2020-09-19] MEDS: ONDANSETRON HCL 4MG TABLET PO PRN (09:21)
[2020-09-19 12:00] VITALS: BP 148/76
[2020-09-19 16:00] VITALS: BP 129/73
[2020-09-19 19:00] VITALS: BP 129/70
[2020-09-19] MEDS: CLONIDINE 0.1MG TABLET PO PRN (20:56)
[2020-09-20] VITALS: BP 129/73
[2020-09-20] MEDS: HYDROCODONE/ACETAMINOPHEN 5/325MG TABLET PO PRN ×3 (02:12→20:16)
[2020-09-20] MEDS: PANTOPRAZOLE 40MG DR TABLET PO SCH ×2 (06:34→20:15)
[2020-09-20] MEDS: SUCRALFATE 1G TABLET PO SCH ×4 (06:34→20:15)
[2020-09-20 06:52] LABS: EOSINOPHILS % 6.2 % (0.0-5.0); HEMATOCRIT. 29.5 % (36.0-48.0); HEMOGLOBIN. 9.3 g/dL (12.0-16.0); LYMPHOCYTES % 23.2 % (20.0-50.0); MEAN CORPUSCULAR HEMOGLOBIN 26.3 pg (28.0-32.0); MEAN CORPUSCULAR VOLUME 82.9 fL (81.0-99.0); MEAN PLATELET VOLUME 7.6 fl (7.4-10.4); NEUTROPHILS % 60.6 % (40.0-76.0); PLATELET 431 x1000/uL (130-400); RED BLOOD CELL COUNT 3.55 mill/uL (4.2-5.4); RED CELL DISTRIBUTION WIDTH 17.9 % (11.6-14.6)
[2020-09-20 08:00] VITALS: BP 117/67
[2020-09-20] MEDS: AMLODIPINE 10MG TABLET PO SCH (09:20)
[2020-09-20] MEDS: LOSARTAN POTASSIUM 50 MG TABLET PO SCH (09:21)
[2020-09-20 12:00] VITALS: BP 138/75
[2020-09-20 16:00] VITALS: BP 127/65
[2020-09-20] MEDS: DOCUSATE SODIUM 250MG CAPSULE PO SCH (18:37)
[2020-09-20 20:00] VITALS: BP 145/74
[2020-09-21] VITALS (7 sets, daily range): BP systolic 135–161; BP diastolic 68–82
[2020-09-21] MEDS: HYDROCODONE/ACETAMINOPHEN 5/325MG TABLET PO PRN ×3 (00:21→12:24)
[2020-09-21] MEDS: SUCRALFATE 1G TABLET PO SCH ×3 (06:33→17:57)
[2020-09-21] MEDS: PANTOPRAZOLE 40MG DR TABLET PO SCH (06:33)
[2020-09-21] MEDS ORDERED: POLYETHYLENE GLYCOL 3350 (17GM) 1 DOSE PACK PO SCH (09:00)
[2020-09-21] MEDS: ONDANSETRON HCL 4MG TABLET PO PRN (09:10)
[2020-09-21] MEDS: LOSARTAN POTASSIUM 50 MG TABLET PO SCH (09:11)
[2020-09-21] MEDS: AMLODIPINE 10MG TABLET PO SCH (09:11)
[2020-09-21] MEDS: DOCUSATE SODIUM 250MG CAPSULE PO SCH (09:11)
[2020-09-21] MEDS ORDERED: HYDROCODONE/ACETAMINOPHEN 10/325MG TABLET PO PRN (13:15)
== END 2020-09-21 18:35 | DRG 241 ==
LOC: ER 21:16 → 3WST 09-13 04:53 → ENRESERV 09-13 11:31 → 6EST 09-14 23:16
PROVIDERS: ADMIT Internal Medicine; ATTEND Internal Medicine
PROC: 0DB98ZX Excision of Duodenum, Via Natural or Artificial Opening Endoscopic, Diagnostic (ICD-10-PCS; principal; 2020-09-17)
PROC: 0DB78ZX Excision of Stomach, Pylorus, Via Natural or Artificial Opening Endoscopic, Diagnostic (ICD-10-PCS; 2020-09-17)
DX: K26.4 Chronic or unspecified duodenal ulcer with hemorrhage (principal); K29.81 Duodenitis with bleeding; K29.30 Chronic superficial gastritis without bleeding; K21.9 Gastro-esophageal reflux disease without esophagitis; M19.90 Unspecified osteoarthritis, unspecified site; M48.02 Spinal stenosis, cervical region; F16.90 Hallucinogen use, unspecified, uncomplicated; I10 Essential (primary) hypertension; I27.20 Pulmonary hypertension, unspecified; N28.1 Cyst of kidney, acquired; E87.5 Hyperkalemia; E87.8 Other disorders of electrolyte and fluid balance, not elsewhere classified; E44.1 Mild protein-calorie malnutrition; E87.0 Hyperosmolality and hypernatremia; Z20.828 Contact with and (suspected) exposure to other viral communicable diseases; D72.829 Elevated white blood cell count, unspecified; F14.90 Cocaine use, unspecified, uncomplicated; D64.9 Anemia, unspecified; I25.2 Old myocardial infarction; Z95.0 Presence of cardiac pacemaker; Z86.718 Personal history of other venous thrombosis and embolism; Z79.899 Other long term (current) drug therapy; Z82.49 Family history of ischemic heart disease and other diseases of the circulatory system; Z87.891 Personal history of nicotine dependence; Z68.29 Body mass index [BMI] 29.0-29.9, adult; Z71.51 Drug abuse counseling and surveillance of drug abuser
CPT/HCPCS: 36415; 71045; 71275; 74177; 80048; 80053; 82378; 83605; 83880; 84484; 85025; 87426; 88305; 88313; 93005; 93970; 97110; 97116; 97162; 97166; 97530; 97535; 99285; C9113; J0360; J1200; J2250; J2270; J2405; J3010; J7030; Q0162; Q9967

== ENCOUNTER 2021-07-19 17:06 | Inpatient (IN) | payer MEDICAID ==
[~2021-07-19] VITALS: Ht 162.6 cm; Wt 68.9 kg
[~2021-07-19 17:06] MED LIST changes: +ATOR-2 PO; +CARI250T PO; +CLOP-31 PO; -CLOP75TA4 PO; +HYDR-4350 MT; -OMEP40CA12 PO; +OMEP40CA20 PO; -SUCR1ORA2 PO
[2021-07-19] MEDS ORDERED: HYDRALAZINE 20MG/ML VIAL IV ONE (17:45)
[2021-07-19 18:26] LABS: BASOPHILS % 0.6 % (0.0-2.0); EOSINOPHILS % 1.4 % (0.0-5.0); HEMATOCRIT. 42.7 % (36.0-48.0); HEMOGLOBIN. 14.1 g/dL (12.0-16.0); MEAN CORPUSCULAR HEMOGLOBIN 30.4 pg (28.0-32.0); MEAN CORPUSCULAR VOLUME 92.3 fL (81.0-99.0); MEAN PLATELET VOLUME 8.6 fl (7.4-10.4); MONOCYTES % 11.3 % (2.0-8.0); NEUTROPHILS % 71.7 % (40.0-76.0); PLATELET 255 x1000/uL (130-400); RED BLOOD CELL COUNT 4.63 mill/uL (4.2-5.4); RED CELL DISTRIBUTION WIDTH 14.9 % (11.6-14.6)
[2021-07-19 18:32] LABS: CHLORIDE 110 mEq/L (98-107)
[2021-07-19] MEDS: NITROGLYCERIN 0.4MG TABLET SL SL PRN ×2 (19:07→19:36)
[2021-07-19 19:54] LABS: PROTHROMBIN TIME 10.4 sec (9.6-11.0)
[2021-07-19] MEDS ORDERED: LABETALOL 5MG/ML SYR 20 MG/4 ML SYRINGE IV ONE (20:00)
[2021-07-19] MEDS ORDERED: NALOXONE HCL 0.4MG/ML VIAL IV PRN (20:45)
[2021-07-19] MEDS: MORPHINE SULFATE 2 MG/ML CPJ (NOT FOR IM USE) IV PRN (21:08)
[2021-07-20] MEDS: MORPHINE SULFATE 2 MG/ML CPJ (NOT FOR IM USE) IV PRN (03:55)
[2021-07-20] MEDS ORDERED: ACETAMINOPHEN 325MG TABLET PO PRN (08:45)
[2021-07-20] MEDS ORDERED: ASPIRIN 81MG TABLET PO SCH (09:00)
[2021-07-20 11:10] VITALS: BP 152/68
[2021-07-20 11:46] LABS: CHLORIDE 112 mEq/L (98-107)
[2021-07-20] MEDS ORDERED: LIDO35.44 TP ×2 (11:50)
[2021-07-20] MEDS ORDERED: LIDOCAINE/PRILOCAINE CREAM 5 GM TUBE TOP PRN (12:00)
[2021-07-20] MEDS ORDERED: NALOXONE HCL 0.4MG/ML VIAL IV PRN (12:00)
[2021-07-20] MEDS: OMEPRAZOLE 20MG CAPSULE EXTENDED RELEASE PO SCH (12:17)
[2021-07-20] MEDS: HYDROCODONE/ACETAMINOPHEN 5/325MG TABLET PO PRN ×3 (12:18→22:31)
[2021-07-20 12:30] VITALS: BP 140/80
[2021-07-20 15:51] LABS: *AMPHETAMINES SCREEN URINE NEGATIVE (NEGATIVE)
[2021-07-20 15:52] LABS: *BENZODIAZEPINES SCREEN URINE NEGATIVE (NEGATIVE); *COCAINE SCREEN URINE PRESUMTIVE POSITIVE (NEGATIVE); CANNABINOID URINE SCREEN PRESUMTIVE POSITIVE (NEGATIVE); METHADONE URINE SCREEN NEGATIVE (NEGATIVE); OPIATES URINE SCREEN PRESUMTIVE POSITIVE (NEGATIVE); PHENCYCLIDINE URINE SCREEN PRESUMTIVE POSITIVE (NEGATIVE)
[2021-07-20 15:53] LABS: *BARBITURATES SCREEN URINE NEGATIVE (NEGATIVE)
[2021-07-20 16:00] VITALS: BP 170/86
[2021-07-20] MEDS: SUCRALFATE 1G TABLET PO SCH ×2 (16:13→20:36)
[2021-07-20] MEDS ORDERED: LIDOCAINE HCL 4% CREAM 76GM TUBE TP PRN (17:00)
[2021-07-20 17:10] LABS: HEMATOCRIT 38.5 % (36.0-48.0); HEMOGLOBIN 12.7 g/dL (12.0-16.0)
[2021-07-20] MEDS: CLONIDINE 0.1MG TABLET PO PRN (18:17)
[2021-07-20] MEDS: ONDANSETRON HCL 4MG/2ML INJ IV PRN (18:17)
[2021-07-20 20:00] VITALS: BP 131/89
[2021-07-21] VITALS (7 sets, daily range): BP systolic 115–190; BP diastolic 62–92
[2021-07-21] MEDS: HYDROCODONE/ACETAMINOPHEN 5/325MG TABLET PO PRN ×4 (06:17→21:06)
[2021-07-21] MEDS: SUCRALFATE 1G TABLET PO SCH ×4 (06:17→20:24)
[2021-07-21] MEDS: OMEPRAZOLE 20MG CAPSULE EXTENDED RELEASE PO SCH (06:17)
[2021-07-21] MEDS: CLONIDINE 0.1MG TABLET PO PRN ×2 (06:18→17:09)
[2021-07-21] MEDS: AMLODIPINE 10MG TABLET PO SCH (13:43)
[2021-07-21] MEDS: ONDANSETRON HCL 4MG/2ML INJ IV PRN (13:43)
[2021-07-22] VITALS (7 sets, daily range): BP systolic 121–173; BP diastolic 56–82
[2021-07-22] MEDS: OMEPRAZOLE 20MG CAPSULE EXTENDED RELEASE PO SCH (06:33)
[2021-07-22] MEDS: SUCRALFATE 1G TABLET PO SCH ×4 (06:33→20:44)
[2021-07-22] MEDS: HYDROCODONE/ACETAMINOPHEN 5/325MG TABLET PO PRN ×3 (06:34→19:50)
[2021-07-22] MEDS: AMLODIPINE 10MG TABLET PO SCH (09:58)
[2021-07-22] MEDS: CLONIDINE 0.1MG TABLET PO PRN ×2 (09:58→19:49)
[2021-07-22 16:31] LABS: BASOPHILS % 1.3 % (0.0-2.0); EOSINOPHILS % 8.4 % (0.0-5.0); HEMATOCRIT. 42.9 % (36.0-48.0); HEMOGLOBIN. 13.8 g/dL (12.0-16.0); LYMPHOCYTES % 26.3 % (20.0-50.0); MEAN CORPUSCULAR VOLUME 92.8 fL (81.0-99.0); MEAN PLATELET VOLUME 8.6 fl (7.4-10.4); PLATELET 292 x1000/uL (130-400); RED BLOOD CELL COUNT 4.62 mill/uL (4.2-5.4); RED CELL DISTRIBUTION WIDTH 14.5 % (11.6-14.6)
[2021-07-22 16:36] LABS: CHLORIDE 108 mEq/L (98-107)
[2021-07-23] VITALS: BP 154/78
[2021-07-23 04:00] VITALS: BP 165/77
[2021-07-23] MEDS: CLONIDINE 0.1MG TABLET PO PRN (05:22)
[2021-07-23] MEDS: HYDROCODONE/ACETAMINOPHEN 5/325MG TABLET PO PRN ×3 (05:22→20:58)
[2021-07-23] MEDS: SUCRALFATE 1G TABLET PO SCH ×4 (06:17→20:58)
[2021-07-23] MEDS: OMEPRAZOLE 20MG CAPSULE EXTENDED RELEASE PO SCH (06:17)
[2021-07-23 08:00] VITALS: BP 156/68
[2021-07-23] MEDS: AMLODIPINE 10MG TABLET PO SCH (09:40)
[2021-07-23 12:00] VITALS: BP 166/66
[2021-07-23 16:00] VITALS: BP 138/94
[2021-07-23] MEDS ORDERED: MAGNESIUM HYDROXIDE 400MG/5ML 30ML UDC PO PRN (17:30)
[2021-07-23 20:00] VITALS: BP 138/54
[2021-07-24] VITALS: BP 138/54
[2021-07-24 04:00] VITALS: BP 145/83
[2021-07-24] MEDS: HYDROCODONE/ACETAMINOPHEN 5/325MG TABLET PO PRN (06:51)
[2021-07-24] MEDS: SUCRALFATE 1G TABLET PO SCH ×2 (06:51→11:50)
[2021-07-24 08:00] VITALS: BP 172/90
[2021-07-24] MEDS: ONDANSETRON HCL 4MG/2ML INJ IV PRN (08:38)
[2021-07-24] MEDS: OMEPRAZOLE 20MG CAPSULE EXTENDED RELEASE PO SCH (08:39)
[2021-07-24] MEDS: AMLODIPINE 10MG TABLET PO SCH (08:54)
[2021-07-24] MEDS: CLONIDINE 0.1MG TABLET PO PRN (08:55)
[2021-07-24 12:00] VITALS: BP 137/71
== END 2021-07-24 15:40 | DRG 812 ==
LOC: ER 17:06 → MICUSO 19:52 → EDBEDREQ 20:02 → EDBEDREQTM 20:02 → 8WST 07-20 09:08
PROVIDERS: ADMIT Internal Medicine; ATTEND Internal Medicine
DX: T50.901A Poisoning by unspecified drugs, medicaments and biological substances, accidental (unintentional), initial encounter (principal); I27.20 Pulmonary hypertension, unspecified; R07.9 Chest pain, unspecified; I25.2 Old myocardial infarction; F41.9 Anxiety disorder, unspecified; I10 Essential (primary) hypertension; M48.02 Spinal stenosis, cervical region; Z86.718 Personal history of other venous thrombosis and embolism; Z95.0 Presence of cardiac pacemaker; Z79.891 Long term (current) use of opiate analgesic; Z79.899 Other long term (current) drug therapy; Z71.51 Drug abuse counseling and surveillance of drug abuser; Y92.89 Other specified places as the place of occurrence of the external cause; Z87.11 Personal history of peptic ulcer disease; F19.10 Other psychoactive substance abuse, uncomplicated
CPT/HCPCS: 36415; 71045; 80048; 80053; 80305; 83880; 84145; 84484; 85014; 85018; 85025; 86803; 86850; 86900; 93005; 93306; 93970; 97110; 97116; 97162; 97166; 99285; J0360; J2270; J2405; J3490

== ENCOUNTER 2022-06-15 08:18 | Emergency (ER) | payer MEDICAID ==
[~2022-06-15] VITALS: Ht 167.6 cm; Wt 73.0 kg
[~2022-06-15 08:18] MED LIST changes: -ATOR-2 PO; -CLOP-31 PO; +LIDO35.421 TP
[2022-06-15] MEDS ORDERED: ASPIRIN 81MG TABLET PO ONE (08:45)
[2022-06-15] MEDS ORDERED: NITROGLYCERIN 0.4MG TABLET SL SL PRN (08:45)
[2022-06-15 09:29] LABS: CHLORIDE 111 mEq/L (98-107)
[2022-06-15 09:36] LABS: ETHANOL BLOOD < 10 mg/dL
[2022-06-15] MEDS ORDERED: ACETAMINOPHEN 325MG TABLET PO ONE (10:45)
[2022-06-15 10:54] LABS: EOSINOPHILS % 5.7 % (0.0-5.0); HEMATOCRIT. 43.4 % (36.0-48.0); HEMOGLOBIN. 13.7 g/dL (12.0-16.0); MEAN CORPUSCULAR HEMOGLOBIN 29.7 pg (28.0-32.0); MEAN CORPUSCULAR VOLUME 94.2 fL (81.0-99.0); NEUTROPHILS % 59.3 % (40.0-76.0); RED BLOOD CELL COUNT 4.61 mill/uL (4.2-5.4); RED CELL DISTRIBUTION WIDTH 14.7 % (11.6-14.6)
[2022-06-15 11:24] LABS: PLATELET 223 x1000/uL (130-400)
[2022-06-15 11:58] VITALS: BP 179/77
[2022-06-15] MEDS ORDERED: IBUP-2029 MT (12:27)
== END 2022-06-15 12:40 | disposition home or self-care (01) ==
LOC: ER 08:18
DX: R07.89 Other chest pain (principal); I48.91 Unspecified atrial fibrillation; J44.9 Chronic obstructive pulmonary disease, unspecified; F41.9 Anxiety disorder, unspecified; I10 Essential (primary) hypertension; Z79.899 Other long term (current) drug therapy
CPT/HCPCS: 36415; 71045; 80053; 80320; 84484; 85025; 93005; 99285; Z7610; G0480

== ENCOUNTER 2023-03-16 04:09 | Inpatient (IN) | payer MEDICARE, MEDICAID ==
[~2023-03-16] VITALS: Ht 158.8 cm; Wt 73.1 kg
[~2023-03-16 04:09] MED LIST changes: +IBUP-2029 MT
[2023-03-16 06:03] LABS: HEMATOCRIT. 38.2 % (36.0-48.0); HEMOGLOBIN. 12.4 g/dL (12.0-16.0); MEAN CORPUSCULAR VOLUME 95.6 fL (81.0-99.0); MEAN PLATELET VOLUME 7.9 fl (7.4-10.4); PLATELET 259 x1000/uL (130-400); RED BLOOD CELL COUNT 3.99 mill/uL (4.2-5.4); RED CELL DISTRIBUTION WIDTH 14.6 % (11.6-14.6)
[2023-03-16 06:10] LABS: CHLORIDE 112 mEq/L (98-107)
[2023-03-16 06:54] LABS: PLATELET ESTIMATE NORMAL
[2023-03-16] MEDS ORDERED: MORPHINE SULFATE 4 MG/ML CPJ (NOT FOR IM USE) IV ONE (07:15)
[2023-03-16] MEDS ORDERED: MORPHINE SULFATE 4 MG/ML CPJ (NOT FOR IM USE) IV NR (09:45)
[2023-03-16 11:58] VITALS: BP 184/100
[2023-03-16 12:42] VITALS: BP 184/100
[2023-03-16 14:00] VITALS: BP 184/98
[2023-03-16 16:00] VITALS: BP 205/77
[2023-03-16] MEDS ORDERED: ONDANSETRON HCL 4MG/2ML INJ IV PRN (16:15)
[2023-03-16] MEDS: CLONIDINE 0.1MG TABLET PO PRN (17:09)
[2023-03-16] MEDS: LOSARTAN POTASSIUM 50 MG TABLET PO SCH (17:09)
[2023-03-16] MEDS: PREDNISONE 20MG TABLET PO SCH (17:09)
[2023-03-16] MEDS: ACETAMINOPHEN 325MG TABLET PO PRN (17:10)
[2023-03-16 18:00] VITALS: BP 205/77
[2023-03-16 20:00] VITALS: BP 150/39
[2023-03-16] MEDS ORDERED: HYDRALAZINE 20MG/ML VIAL IV PRN (22:30)
[2023-03-17] VITALS: BP 161/59
[2023-03-17 00:31] LABS: CREATINE KINASE 41 IU/L (26-192)
[2023-03-17] MEDS: CLONIDINE 0.1MG TABLET PO PRN ×2 (01:07→20:26)
[2023-03-17 04:00] VITALS: BP 145/78
[2023-03-17 08:00] VITALS: BP 171/66
[2023-03-17] MEDS: PREDNISONE 20MG TABLET PO SCH (09:31)
[2023-03-17] MEDS: LOSARTAN POTASSIUM 50 MG TABLET PO SCH ×2 (09:31→16:23)
[2023-03-17] MEDS: AMLODIPINE 10MG TABLET PO SCH (11:14)
[2023-03-17 12:00] VITALS: BP 170/66
[2023-03-17 16:00] VITALS: BP 162/67
[2023-03-17 16:02] LABS: HEMATOCRIT. 38.3 % (36.0-48.0); HEMOGLOBIN. 12.6 g/dL (12.0-16.0); MEAN CORPUSCULAR HEMOGLOBIN 31.4 pg (28.0-32.0); MEAN CORPUSCULAR VOLUME 95.4 fL (81.0-99.0); PLATELET 246 x1000/uL (130-400); RED BLOOD CELL COUNT 4.02 mill/uL (4.2-5.4); RED CELL DISTRIBUTION WIDTH 14.6 % (11.6-14.6)
[2023-03-17 16:08] LABS: CLARITY URINE CLEAR (CLEAR); COLOR URINE YELLOW (YELLOW); KETONES URINE NEGATIVE (NEGATIVE); LEUKOCYTE ESTERASE URINE 2+ (NEGATIVE); NITRITE URINE POSITIVE (NEGATIVE); OCCULT BLOOD URINE 1+ (NEGATIVE); PH URINE 6.5 (4.5-8.0); PROTEIN URINE TRACE (NEGATIVE); SPECIFIC GRAVITY URINE 1.017 (1.005-1.030)
[2023-03-17] MEDS ORDERED: MAGNESIUM/ALUMINUM HYDROXIDE/SIMETHICONE 30ML UDC PO PRN (16:15)
[2023-03-17 16:26] LABS: CHLORIDE 111 mEq/L (98-107)
[2023-03-17 16:26] LABS: *AMPHETAMINES SCREEN URINE NEGATIVE (NEGATIVE); *BARBITURATES SCREEN URINE NEGATIVE (NEGATIVE); *BENZODIAZEPINES SCREEN URINE NEGATIVE (NEGATIVE); *COCAINE SCREEN URINE PRESUMTIVE POSITIVE (NEGATIVE); CANNABINOID URINE SCREEN NEGATIVE (NEGATIVE); METHADONE URINE SCREEN NEGATIVE (NEGATIVE); OPIATES URINE SCREEN PRESUMTIVE POSITIVE (NEGATIVE); PHENCYCLIDINE URINE SCREEN PRESUMTIVE POSITIVE (NEGATIVE)
[2023-03-17 16:51] LABS: PLATELET ESTIMATE NORMAL
[2023-03-17] MEDS: ACETAMINOPHEN 325MG TABLET PO PRN (17:03)
[2023-03-17 18:23] LABS: CREATINE KINASE 32 IU/L (26-192)
[2023-03-17] MEDS ORDERED: NALOXONE HCL 0.4MG/ML VIAL IV PRN (19:00)
[2023-03-17 20:00] VITALS: BP 160/79
[2023-03-17] MEDS: HYDROCODONE/ACETAMINOPHEN 5/325MG TABLET PO PRN (20:26)
[2023-03-17 20:28] LABS: CREATINE KINASE MB FRACTION < 1.0 ng/mL (0.5-3.6)
[2023-03-17 22:18] LABS: CREATINE KINASE MB FRACTION < 1.0 ng/mL (0.5-3.6)
[2023-03-18] VITALS: BP 158/55
[2023-03-18 04:00] VITALS: BP 145/61
[2023-03-18] MEDS: HYDROCODONE/ACETAMINOPHEN 5/325MG TABLET PO PRN ×3 (04:35→21:04)
[2023-03-18 07:18] LABS: BASOPHILS % 1.1 % (0.0-2.0); EOSINOPHILS % 0.9 % (0.0-5.0); HEMATOCRIT. 36.2 % (36.0-48.0); HEMOGLOBIN. 11.9 g/dL (12.0-16.0); LYMPHOCYTES % 20.5 % (20.0-50.0); MEAN CORPUSCULAR HEMOGLOBIN 31.5 pg (28.0-32.0); MEAN CORPUSCULAR VOLUME 95.5 fL (81.0-99.0); MEAN PLATELET VOLUME 8.5 fl (7.4-10.4); MONOCYTES % 11.3 % (2.0-8.0); NEUTROPHILS % 66.2 % (40.0-76.0); PLATELET 240 x1000/uL (130-400); RED BLOOD CELL COUNT 3.79 mill/uL (4.2-5.4); RED CELL DISTRIBUTION WIDTH 14.3 % (11.6-14.6)
[2023-03-18 07:43] LABS: CHLORIDE 112 mEq/L (98-107)
[2023-03-18 08:00] VITALS: BP 177/89
[2023-03-18] MEDS ORDERED: HYDRALAZINE HCL 50MG TABLET PO SCH (09:15)
[2023-03-18] MEDS: AMLODIPINE 10MG TABLET PO SCH (09:46)
[2023-03-18] MEDS: LOSARTAN POTASSIUM 50 MG TABLET PO SCH ×2 (09:46→17:13)
[2023-03-18] MEDS: PREDNISONE 20MG TABLET PO SCH (09:47)
[2023-03-18 12:00] VITALS: BP 188/97
[2023-03-18] MEDS: GUAIFENESIN-DM 200MG-20MG/10ML UDC PO PRN ×2 (14:01→23:57)
[2023-03-18 16:00] VITALS: BP 160/78
[2023-03-18] MEDS: HYDRALAZINE HCL 100MG TABLET PO SCH ×2 (17:13→23:54)
[2023-03-18 20:00] VITALS: BP 152/65
[2023-03-18] MEDS ORDERED: HYDRALAZINE HCL 100MG TABLET PO SCH (21:00)
[2023-03-19] VITALS: BP 168/64
[2023-03-19] MEDS: CLONIDINE 0.1MG TABLET PO PRN (03:26)
[2023-03-19] MEDS: HYDROCODONE/ACETAMINOPHEN 5/325MG TABLET PO PRN ×3 (03:28→17:59)
[2023-03-19] MEDS: HYDRALAZINE HCL 100MG TABLET PO SCH ×3 (06:21→22:26)
[2023-03-19 08:00] VITALS: BP 133/52
[2023-03-19] MEDS: LOSARTAN POTASSIUM 50 MG TABLET PO SCH ×2 (10:31→17:59)
[2023-03-19] MEDS: PREDNISONE 20MG TABLET PO SCH (10:31)
[2023-03-19] MEDS: AMLODIPINE 10MG TABLET PO SCH (10:31)
[2023-03-19 12:00] VITALS: BP 158/78
[2023-03-19] MEDS: CEFTRIAXONE 1,000 MG in DEXTROSE 5% WATER 50 ML IV SCH (12:47)
[2023-03-19 16:00] VITALS: BP 149/76
[2023-03-19 17:31] LABS: TOTAL IRON BINDING CAPACITY 259 ug/dL (250-450)
[2023-03-19 17:48] LABS: FERRITIN 29 ng/mL (10-291)
[2023-03-19 17:54] LABS: VITAMIN B12 SERUM 668 pg/mL (211-911)
[2023-03-19 20:00] VITALS: BP 159/68
[2023-03-19 23:55] VITALS: BP 133/53
[2023-03-20] MEDS: HYDROCODONE/ACETAMINOPHEN 5/325MG TABLET PO PRN ×2 (00:04→18:17)
[2023-03-20 05:50] VITALS: BP 111/47
[2023-03-20] MEDS: HYDRALAZINE HCL 100MG TABLET PO SCH (06:00)
[2023-03-20 07:02] LABS: BASOPHILS % 0.7 % (0.0-2.0); EOSINOPHILS % 0.3 % (0.0-5.0); HEMATOCRIT. 37.6 % (36.0-48.0); HEMOGLOBIN. 12.5 g/dL (12.0-16.0); LYMPHOCYTES % 35.7 % (20.0-50.0); MEAN CORPUSCULAR HEMOGLOBIN 31.5 pg (28.0-32.0); MEAN CORPUSCULAR VOLUME 94.6 fL (81.0-99.0); MEAN PLATELET VOLUME 7.9 fl (7.4-10.4); MONOCYTES % 10.3 % (2.0-8.0); PLATELET 242 x1000/uL (130-400); RED BLOOD CELL COUNT 3.97 mill/uL (4.2-5.4); RED CELL DISTRIBUTION WIDTH 14.7 % (11.6-14.6)
[2023-03-20 07:03] LABS: PROTHROMBIN TIME 10.3 sec (9.6-11.0)
[2023-03-20 07:04] LABS: CHLORIDE 113 mEq/L (98-107)
[2023-03-20 08:00] VITALS: BP 135/52
[2023-03-20] MEDS: AMLODIPINE 10MG TABLET PO SCH (09:00)
[2023-03-20] MEDS: PREDNISONE 20MG TABLET PO SCH ×2 (09:00→12:21)
[2023-03-20] MEDS: LOSARTAN POTASSIUM 50 MG TABLET PO SCH ×2 (09:00→18:15)
[2023-03-20 12:00] VITALS: BP 153/74
[2023-03-20] MEDS ORDERED: IRON SUCROSE COMPLEX 100 MG/5 ML ML IV SCH (12:00)
[2023-03-20] MEDS: CEFTRIAXONE 1,000 MG in DEXTROSE 5% WATER 50 ML IV SCH (12:34)
[2023-03-20] MEDS: HYDRALAZINE HCL 50MG TABLET PO SCH ×2 (14:00→22:00)
[2023-03-20] MEDS ORDERED: PROPOFOL 200MG/20ML VIAL IV ONE ×2 (14:34→14:55)
[2023-03-20] MEDS ORDERED: MIDAZOLAM HCL 2 MG/2 ML VIAL ONE ×2 (14:34→14:43)
[2023-03-20] MEDS ORDERED: LIDOCAINE HCL 1% 10 MG/ML 10ML VIAL ONE (14:34)
[2023-03-20] MEDS ORDERED: IPRATROPIUM/ALBUTEROL 0.5-3(2.5)MG/3ML NEB ONE (15:52)
[2023-03-20] MEDS ORDERED: IPRATROPIUM/ALBUTEROL 0.5-3(2.5)MG/3ML NEB HHN NR (16:00)
[2023-03-20 16:50] VITALS: BP 140/70
[2023-03-20 20:00] VITALS: BP 112/38
[2023-03-21] VITALS: BP 122/42
[2023-03-21] MEDS: HYDROCODONE/ACETAMINOPHEN 5/325MG TABLET PO PRN ×3 (00:36→13:10)
[2023-03-21 04:00] VITALS: BP 120/39
[2023-03-21] MEDS: HYDRALAZINE HCL 50MG TABLET PO SCH ×2 (06:45→13:15)
[2023-03-21 08:00] VITALS: BP 143/63
[2023-03-21] MEDS: LOSARTAN POTASSIUM 50 MG TABLET PO SCH (08:33)
[2023-03-21] MEDS: AMLODIPINE 10MG TABLET PO SCH (08:33)
[2023-03-21] MEDS: PREDNISONE 20MG TABLET PO SCH (08:33)
[2023-03-21] MEDS ORDERED: OMEP40CA20 PO (08:46)
[2023-03-21] MEDS ORDERED: SUCR1ORA15 PO (08:46)
[2023-03-21 12:00] VITALS: BP 156/64
[2023-03-21] MEDS: CEFTRIAXONE 1,000 MG in DEXTROSE 5% WATER 50 ML IV SCH (13:09)
[2023-03-21 14:07] VITALS: BP 140/65
[2023-03-21 16:00] VITALS: BP 140/65
== END 2023-03-21 16:00 | disposition home or self-care (01) | DRG 190 ==
LOC: ER 04:09 → 7EST 07:45 → 7WST 03-18 16:44
PROVIDERS: ADMIT Internal Medicine; ATTEND Internal Medicine
PROC: 0DB78ZX Excision of Stomach, Pylorus, Via Natural or Artificial Opening Endoscopic, Diagnostic (ICD-10-PCS; principal; 2023-03-20)
DX: J44.1 Chronic obstructive pulmonary disease with (acute) exacerbation (principal); K29.71 Gastritis, unspecified, with bleeding; N39.0 Urinary tract infection, site not specified; I11.0 Hypertensive heart disease with heart failure; I50.9 Heart failure, unspecified; I16.0 Hypertensive urgency; G62.9 Polyneuropathy, unspecified; K27.9 Peptic ulcer, site unspecified, unspecified as acute or chronic, without hemorrhage or perforation; D64.9 Anemia, unspecified; I07.1 Rheumatic tricuspid insufficiency; I25.10 Atherosclerotic heart disease of native coronary artery without angina pectoris; Z20.822 Contact with and (suspected) exposure to COVID-19; I27.20 Pulmonary hypertension, unspecified; I48.91 Unspecified atrial fibrillation; K21.9 Gastro-esophageal reflux disease without esophagitis; K44.9 Diaphragmatic hernia without obstruction or gangrene; E78.5 Hyperlipidemia, unspecified; F41.9 Anxiety disorder, unspecified; F14.10 Cocaine abuse, uncomplicated; F17.200 Nicotine dependence, unspecified, uncomplicated; Z87.11 Personal history of peptic ulcer disease; Z79.899 Other long term (current) drug therapy; Z95.810 Presence of automatic (implantable) cardiac defibrillator; Z82.49 Family history of ischemic heart disease and other diseases of the circulatory system
CPT/HCPCS: 36415; 71045; 74176; 76700; 80048; 80053; 80305; 81003; 82550; 82553; 82607; 82728; 83540; 83550; 83880; 84484; 85025; 85044; 86850; 86900; 87077; 87186; 87426; 88305; 93005; 93306; 93970; 94640; 97161; 99285; C1893; J0360; J0696; J2250; J2270; J2405; J2704; J3490; J7060; J7512

== ENCOUNTER 2025-07-24 10:14 | Inpatient (IN) | payer BC, MEDICAID ==
[~2025-07-24] VITALS: Ht 160 cm; Wt 72.6 kg
[~2025-07-24 10:14] MED LIST changes: +AMLO-905 PO; -AMLO10TA4 PO; +AMLO5TAB88 PO; +ATOR20TA MT; -CARI250T PO; +FURO40TA5 PO; -GABA-533 PO; +GABA-534 PO; +GUAI400T99 PO; -HYDR-4350 MT; -IBUP-2029 MT; +ISOS30TA91 PO; -LIDO35.421 TP; +MAGN500T2 PO; -OMEP40CA20 PO; +PROT40 MT; +SUCR1TAB PO
[2025-07-24 11:11] LABS: BASOPHILS % 0.4 % (0.0-2.0); EOSINOPHILS % 1.8 % (0.0-5.0); HEMATOCRIT. 41.5 % (36.0-48.0); HEMOGLOBIN. 13.2 g/dL (12.0-16.0); LYMPHOCYTES % 10.6 % (20.0-50.0); MEAN PLATELET VOLUME 7.7 fl (7.4-10.4); MONOCYTES % 6.0 % (2.0-8.0); NEUTROPHILS % 81.2 % (40.0-76.0); PLATELET 337 x1000/uL (130-400); RED BLOOD CELL COUNT 4.57 mill/uL (4.2-5.4); RED CELL DISTRIBUTION WIDTH 15.9 % (11.6-14.6)
[2025-07-24] MEDS: MORPHINE SULFATE 4 MG/ML INJ (FOR IV/IM USE) IV ONE (11:13)
[2025-07-24 11:15] LABS: CREATININE 1.4 mg/dL (0.6-1.0); UREA NITROGEN BLOOD 15 mg/dL (9-23)
[2025-07-24 11:16] LABS: TROPONIN I HIGH SENSITIVITY 6 ng/L (3.0-34)
[2025-07-24] MEDS: CEFTRIAXONE 1GM/50ML 50 ML IV SCH (14:00)
[2025-07-24] MEDS ORDERED: ACETAMINOPHEN 650MG/20.3ML UDC GT PRN (14:00)
[2025-07-24] MEDS ORDERED: ACETAMINOPHEN 650MG SUPP PR PRN (14:00)
[2025-07-24] MEDS ORDERED: IPRATROPIUM/ALBUTEROL 0.5-3(2.5)MG/3ML NEB HHN PRN (14:00)
[2025-07-24] MEDS ORDERED: ONDANSETRON HCL 4MG/2ML INJ IV PRN (14:00)
[2025-07-24] MEDS ORDERED: PANT40TA51 PO (14:18)
[2025-07-24] MEDS ORDERED: APIX5TAB4 PO (14:18)
[2025-07-24] MEDS ORDERED: MAGN500T2 PO (14:18)
[2025-07-24] MEDS ORDERED: ATOR20TA65 PO (14:18)
[2025-07-24] MEDS ORDERED: NITROGLYCERIN 0.4MG TABLET SL SL PRN (14:30)
[2025-07-24 14:53] LABS: INR 1.0; PHOSPHORUS 3.1 mg/dL (2.5-4.9)
[2025-07-24 15:07] LABS: TROPONIN I HIGH SENSITIVITY 8 ng/L (3.0-34)
[2025-07-24] MEDS: HYDRALAZINE 20MG/ML VIAL IV NR (15:14)
[2025-07-24] MEDS: NITROGLYCERIN 0.4MG TABLET SL SL NR (15:15)
[2025-07-24] MEDS: METHYLPREDNISOLONE SOD SUCC 125MG/2ML (ACT-O-VIAL) IV NR (15:15)
[2025-07-24 17:14] VITALS: BP 179/67; PULSE 75; RESP 21; TEMP 36.7516
[2025-07-24 17:45] LABS: TROPONIN I HIGH SENSITIVITY 7 ng/L (3.0-34)
[2025-07-24] MEDS: SUCRALFATE 1G TABLET PO SCH (19:02)
[2025-07-24] MEDS: CLONIDINE 0.1MG TABLET PO PRN (19:02)
[2025-07-24] MEDS: AZITHROMYCIN 500 MG TABLET PO SCH (19:48)
[2025-07-24] MEDS: AMLODIPINE 10MG TABLET PO SCH (19:49)
[2025-07-24] MEDS: LOSARTAN 50 MG TABLET PO SCH (19:49)
[2025-07-24] MEDS: ISOSORBIDE MONONITRATE 30MG TABLET SR 24HR PO SCH (19:50)
[2025-07-24 20:00] VITALS: BP 160/58; PULSE 75; RESP 20; TEMP 36.8; O2SAT 96
[2025-07-24] MEDS: PANTOPRAZOLE SODIUM 40 MG/VIAL IV SCH (21:00)
[2025-07-24] MEDS: METHYLPREDNISOLONE SOD SUCC 40MG/ML (ACT-O-VIAL) IV SCH (21:51)
[2025-07-24] MEDS: IPRATROPIUM/ALBUTEROL 0.5-3(2.5)MG/3ML NEB HHN SCH (22:09)
[2025-07-25] VITALS (8 sets, daily range): BP systolic 118–165; BP diastolic 54–76; PULSE 76–100; RESP 16–20; TEMP 36.4–37.2; O2SAT 95–99
[2025-07-25 07:50] LABS: BASOPHILS % 0.2 % (0.0-2.0); EOSINOPHILS % 0.1 % (0.0-5.0); HEMATOCRIT. 38.2 % (36.0-48.0); HEMOGLOBIN. 12.1 g/dL (12.0-16.0); LYMPHOCYTES % 10.0 % (20.0-50.0); MEAN PLATELET VOLUME 8.2 fl (7.4-10.4); MONOCYTES % 1.9 % (2.0-8.0); NEUTROPHILS % 87.8 % (40.0-76.0); PLATELET 319 x1000/uL (130-400); RED BLOOD CELL COUNT 4.22 mill/uL (4.2-5.4); RED CELL DISTRIBUTION WIDTH 15.8 % (11.6-14.6)
[2025-07-25 08:53] LABS: T4 FREE 1.04 ng/dL (0.89-1.76)
[2025-07-25 08:56] LABS: CREATININE 1.3 mg/dL (0.6-1.0); TRIGLYCERIDE 53.0 mg/dL (0-150); UREA NITROGEN BLOOD 18.0 mg/dL (9-23)
[2025-07-25 08:57] LABS: LDL CHOLESTEROL 107.0 mg/dL (5-100)
[2025-07-25] MEDS: HYDROCODONE/ACETAMINOPHEN 5/325MG TABLET PO PRN (11:08)
[2025-07-25 12:13] LABS: INFLUENZA TYPE A Presumptive Negative (Pres. Neg.); INFLUENZA TYPE B Presumptive Negative (Pres. Neg.)
[2025-07-25 12:14] LABS: RESPIRATORY SYNCYTIAL VIRUS Not Detected (Not Detectd)
[2025-07-25] MEDS ORDERED: NALOXONE HCL 0.4MG/ML VIAL IV PRN (17:30)
[2025-07-25 18:39] LABS: ASPARTATE AMINOTRANSFERASE 14 IU/L (<34); BILIRUBIN DIRECT < 0.1 mg/dL (<=3.0); BILIRUBIN TOTAL 0.2 mg/dL (0.1-1.0); PROTEIN TOTAL 5.9 g/dL (6.0-8.3)
[2025-07-25] MEDS ORDERED: METHYLPREDNISOLONE 4MG TABLET PO SCH (21:00)
[2025-07-25] MEDS: METHYLPREDNISOLONE SOD SUCC 40MG/ML (ACT-O-VIAL) IV SCH (21:59)
[2025-07-26] VITALS (10 sets, daily range): BP systolic 119–142; BP diastolic 55–71; PULSE 72–104; RESP 17–22; TEMP 36.2–36.7; O2SAT 92–100
[2025-07-26] MEDS: PREDNISONE 20MG TABLET PO SCH (08:22)
[2025-07-26] MEDS: PANTOPRAZOLE 40MG DR TABLET PO SCH (08:23)
[2025-07-26] MEDS ORDERED: ONDANSETRON HCL 4MG TABLET PO PRN (10:30)
[2025-07-26] MEDS: AMOXICILLIN/POTASSIUM CLAVULANATE 875/125MG TAB PO SCH (21:40)
[2025-07-26] MEDS: ATORVASTATIN CALCIUM 20MG TABLET PO SCH (21:42)
[2025-07-27] VITALS (9 sets, daily range): BP systolic 131–162; BP diastolic 64–81; PULSE 75–92; RESP 15–20; TEMP 36.2–36.6; O2SAT 75–100
[2025-07-27] MEDS ORDERED: FUROSEMIDE 20MG/2ML VIAL IVP SCH (12:30)
[2025-07-27] MEDS ORDERED: ALBU18HF2 IH (12:45)
[2025-07-27] MEDS ORDERED: PANT40TA51 PO (12:45)
[2025-07-27] MEDS ORDERED: ATOR20TA PO (12:45)
[2025-07-27] MEDS ORDERED: AMLO10TA80 PO (12:45)
[2025-07-27] MEDS ORDERED: ACET-2708 MT (12:45)
[2025-07-27] MEDS ORDERED: FURO40TA5 PO (12:45)
[2025-07-27] MEDS ORDERED: TUSSL MT (12:45)
[2025-07-27] MEDS ORDERED: GABA-534 PO (12:45)
[2025-07-27] MEDS ORDERED: FLUT1DIS3 INH (12:45)
[2025-07-27] MEDS ORDERED: AMOX1TAB16 PO (12:45)
[2025-07-27] MEDS ORDERED: SUCR1TAB PO (12:45)
[2025-07-27] MEDS ORDERED: AZIT500T8 PO (12:45)
[2025-07-27] MEDS ORDERED: P20 PO (12:45)
[2025-07-27] MEDS ORDERED: LOSA50TA41 PO (12:45)
[2025-07-27] MEDS ORDERED: ISOS30TA91 PO (12:45)
[2025-07-27 13:54] LABS: CLARITY URINE CLEAR (CLEAR); COLOR URINE YELLOW (YELLOW); GLUCOSE URINE NEGATIVE (NEGATIVE); KETONES URINE NEGATIVE (NEGATIVE); LEUKOCYTE ESTERASE URINE 1+ (NEGATIVE); NITRITE URINE NEGATIVE (NEGATIVE); OCCULT BLOOD URINE NEGATIVE (NEGATIVE); PH URINE 6.0 (4.5-8.0); PROTEIN URINE TRACE (NEGATIVE); SPECIFIC GRAVITY URINE 1.020 (1.005-1.030); UROBILINOGEN URINE 0.2 E.U./dL (0.2-1.0)
[2025-07-27 14:08] LABS: SQUAMOUS EPITHELIAL CELL URINE FEW /lpf (RARE/1+)
[2025-07-27 14:09] LABS: *AMPHETAMINES SCREEN URINE NEGATIVE (NEGATIVE); *BARBITURATES SCREEN URINE NEGATIVE (NEGATIVE); *BENZODIAZEPINES SCREEN URINE NEGATIVE (NEGATIVE); *COCAINE SCREEN URINE PRESUMPTIVE POSITIVE (NEGATIVE); BACTERIA URINE 2+; CANNABINOID URINE SCREEN NEGATIVE (NEGATIVE); ECSTASY MDMA SCREEN URINE NEGATIVE (NEGATIVE); METHADONE URINE SCREEN NEGATIVE (NEGATIVE); OPIATES URINE SCREEN PRESUMPTIVE POSITIVE (NEGATIVE); PHENCYCLIDINE URINE SCREEN PRESUMTIVE POSITIVE (NEGATIVE); RBC URINE 0-2 /hpf (0-2); WBC URINE 25-50 /hpf (0-2)
[2025-07-27] MEDS: FUROSEMIDE 40MG TABLET PO SCH (15:49)
[2025-07-27] MEDS: GUAIFENESIN 200MG/10ML SUGAR FREE UDC PO SCH (21:21)
[2025-07-28] VITALS: BP 135/66; PULSE 76; RESP 16; TEMP 36.4; O2SAT 97
[2025-07-28 02:08] VITALS: PULSE 72; RESP 19; O2SAT 95
[2025-07-28 04:00] VITALS: BP 138/68; PULSE 78; RESP 18; TEMP 36.6; O2SAT 98
[2025-07-28 05:32] VITALS: BP 136/60; PULSE 78; RESP 16; TEMP 97.9
== END 2025-07-28 06:30 | disposition home or self-care (01) | DRG 193 ==
LOC: ER 10:14 → 8WST 13:10 → EDBEDREQTM 13:28 → EDBEDREQ 13:28 → 8EST 07-27 23:36
PROVIDERS: ADMIT Internal Medicine; ATTEND Internal Medicine
DX: J18.9 Pneumonia, unspecified organism (principal); I50.33 Acute on chronic diastolic (congestive) heart failure; N17.0 Acute kidney failure with tubular necrosis; I13.0 Hypertensive heart and chronic kidney disease with heart failure and stage 1 through stage 4 chronic kidney disease, or unspecified chronic kidney disease; J44.1 Chronic obstructive pulmonary disease with (acute) exacerbation; I20.0 Unstable angina; I16.1 Hypertensive emergency; J44.0 Chronic obstructive pulmonary disease with (acute) lower respiratory infection; E87.0 Hyperosmolality and hypernatremia; K92.2 Gastrointestinal hemorrhage, unspecified; Z59.00 Homelessness unspecified; N18.9 Chronic kidney disease, unspecified; F14.10 Cocaine abuse, uncomplicated; E11.65 Type 2 diabetes mellitus with hyperglycemia; F17.210 Nicotine dependence, cigarettes, uncomplicated; I48.0 Paroxysmal atrial fibrillation; E86.0 Dehydration; R82.71 Bacteriuria; Z95.0 Presence of cardiac pacemaker; Z79.899 Other long term (current) drug therapy; Z87.11 Personal history of peptic ulcer disease; Z86.711 Personal history of pulmonary embolism; Z79.01 Long term (current) use of anticoagulants; Z79.51 Long term (current) use of inhaled steroids; Z82.49 Family history of ischemic heart disease and other diseases of the circulatory system
CPT/HCPCS: 36415; 71045; 80048; 80061; 80076; 80305; 81003; 82040; 82550; 82728; 83036; 83540; 83550; 83605; 83735; 83880; 83930; 84100; 84145; 84439; 84443; 84484; 85025; 87420; 87804; 93005; 94070; 94640; 94664; 94760; 96374; 97162; 97166; 98960; 99285; A4606; J0360; J2270; J2405; J2470; J2919; J7512